=== PATIENT | female | born 1985 | race African-American/Black ===

== ENCOUNTER 2021-10-14 17:12 | Emergency (ER) | payer MEDICAID, SELFPAY ==
[2021-10-14 17:14] VITALS: BP 143/91; PULSE 151; RESP 16; TEMP 36.9; O2SAT 100; BMI 29.0
--- NOTE | 2021-10-14 18:09 | EKG12_ITS ---
Test Reason : SYNCOPE Blood Pressure : / mmHG Vent. Rate : 138 BPM Atrial Rate : 138 BPM P-R Int : 130 ms QRS Dur : 080 ms QT Int : 286 ms P-R-T Axes : 057 023 056 degrees QTc Int : 433 ms Sinus tachycardia Otherwise normal ECG Confirmed by TREY LINDSEY, RAY ([id number]), tape editor YADIRA LUBIN ([id number]) on 10/17/2021 9:23:17 AM Referred By: BB Confirmed By:RAY YANG MD
--- NOTE | 2021-10-14 18:09 | ED.VIS.FEGU ---
HPI HPI - Female History of Present Illness Chief Complaint: Vag Bleeding Informant: patient and EMS Bleeding Issue: Positive for Vaginal bleeding and Passing clots Onset: Today Context: Gradual Onset Timing: Continuous Current Severity: Mild Maximum Severity: Heavy Narrative Narrative: Patient started having spontaneous vaginal bleeding several hours ago, it became extremely heavy, with clots, and her IUD came out which was placed about 2 years ago. This was the second IUD she had after the initial 1 went 5 years and ran out of hormone. She states after the bleeding started today, she had a brief syncopal episode. The significant other witnessed it, states she was out for less than 1 minute. She felt lightheaded and gradually had this occur, no palpitations, chest discomfort, shortness of breath. She did have some pelvic/low back cramping earlier but that is gone and she is feeling better now. No nausea or vomiting. No recent illness. States he has a history of fibroids but they did not want to do a hysterectomy on her at the time they evaluated her for the fibroids. No problems urinating recently and no other illness. [facility] Medical History (Updated 10/14/21 @ 22:[address] Abhi Olivares MD) Fibroids Iron deficiency anemia Migraine headache Home Medications cyclobenzaprine 10 mg PO TID PRN #20 tablet 05/08/17 [Rx Last Taken Unknown] hydrocodone-acetaminophen 1 - 2 tab PO Q4H PRN PRN #20 tablet 05/08/17 [Rx Last Taken Unknown] losartan 25 mg PO DAILY PRN 05/08/17 [History Last Taken Unknown] norethindrone acetate [Aygestin] See Rx Instructions .ROUTE .COMPLEX #39 tab 10/14/21 [Rx Last Taken Unknown] Allergy/AdvReac Type Severity Reaction Status Date / Time No Known Allergies Allergy Verified 10/14/21 17:13 Surgical History (Updated 10/14/21 @ 17:18 by Kiana Bonilla) History of tonsillectomy Social History Smoking Status: Never smoker ROS ROS ED Constitutional Constitutional ED: Denies chills or fever(s) Eyes Eyes: Denies change in vision or diplopia ENT ENT ED: Denies rhinorrhea or sore throat Cardiovascular Cardiovascular: Denies chest pain or palpitations Respiratory/Chest Respiratory/Chest: Denies cough or dyspnea Gastrointestinal Gastrointestinal: Reports as per HPI and abdominal pain; Denies diarrhea, nausea or vomiting Genitourinary Genitourinary ED: Reports as per HPI; Denies dysuria or hematuria Musculoskeletal Musculoskeletal: Reports back pain; Denies neck pain Integumentary Denies abscess or rash Neurologic Neurologic: Denies headache(s), paresthesias or weakness Psychiatric Psychiatric: Denies anxiety or suicidal thoughts EXAM Physical Exam Const Vital Signs: 10/14/21 17:14 10/14/21 18:18 10/14/21 21:06 Temperature 98.4 F Temperature Source Temporal Pulse Rate 151 H 138 H 103 H Pulse Rate [Sitting (for 1 minute prior to obtaining)] Pulse Rate [Standing (for 1 minute prior to obtaining)] Respiratory Rate 16 16 17 Blood Pressure 143/91 H 119/79 119/79 Blood Pressure [Sitting (for 1 minute prior to obtaining)] Blood Pressure [Standing (for 1 minute prior to obtaining)] Blood Pressure Mean 108 92 92 Blood Pressure Mean [Sitting (for 1 minute prior to obtaining)] Blood Pressure Mean [Standing (for 1 minute prior to obtaining)] Pulse Ox 100 99 100 Oxygen Delivery Method Room Air Room Air Room Air 10/14/21 21:42 Temperature Temperature Source Pulse Rate Pulse Rate [Sitting (for 1 minute prior to obtaining)] 117 H Pulse Rate [Standing (for 1 minute prior to obtaining)] 130 H Respiratory Rate Blood Pressure Blood Pressure [Sitting (for 1 minute prior to obtaining)] 122/84 H Blood Pressure [Standing (for 1 minute prior to obtaining)] 130/96 H Blood Pressure Mean Blood Pressure Mean [Sitting (for 1 minute prior to obtaining)] 96 Blood Pressure Mean [Standing (for 1 minute prior to obtaining)] 107 Pulse Ox Oxygen Delivery Method Positive well nourished and well developed General Appearance ED: well developed and NAD HEENT Reports moist mucous membranes normocephalic and atraumatic Eyes PERRL and EOMs intact bilaterally Neck full ROM and supple Resp normal respiratory effort and clear to auscultation bilaterally Cardio regular rate, regular rhythm and no murmurs Rate: tachycardic GI non-tender and non-distended Auscultation: normoactive bowel sounds Palpation: soft Narrative: Speculum exam: Blood and clots within the vaginal canal, after removing this gently with swabs, there was a small clot within the cervical eyes which I also was able to gently remove with a swab, palpating the uterus there is no active vaginal bleeding after this. Back/Spine no CVA tenderness General Back: other FROM Extremity normal to inspection General Extremety ED: Negative for edema, pulses abnormal or tenderness General Extremity: Negative for edema or pulses abnormal Neuro oriented x3, CN's II-XII intact bilaterally and no sensory deficits noted Sensorium / Orientation: awake and alert Motor Exam: strength 5/5 throughout Skin no rashes or lesions noted and no wounds MDM MDM MDM Narrative Medical decision making narrative: Initially patient very orthostatic, she stood up and felt near syncopal. Her hemoglobin is higher than her baseline at 12.5. Given the heavy bleeding, syncopal episode, and orthostasis, I thought it would be better to repeat her hemoglobin and hematocrit after a liter of fluid and time. We did this 3 hours after the initial draw, and it is showing a hemoglobin of 10.8 closer to her baseline. Her tachycardia improved down to around 100-110. We repeated orthostatics and she no longer feels lightheaded and was able to walk to and from the bathroom. She did have some mild vaginal bleeding at this time but no clots nothing severe or as heavy as it was earlier. I discussed all this several times with Dr. Baltazar, she is comfortable with her going home as am I. She recommends Aygestin 5 mg 4 times daily for as many days that she is having bleeding, and then tapering afterwards and following up closely in the office. Patient is comfortable with this overall plan and feels much better. I suspect this is related to her fibroids, and since her bleeding is controlled outpatient follow-up is reasonable. Discussed reasons to return. Lab Data Attestation: I reviewed the patient's lab results. Labs: Laboratory Results - last 24 hr 10/14/21 10/14/21 10/14/21 17:30 17:30 17:30 WBC 8.7 RBC 4.33 Hgb 12.5 Hct 39.5 MCV 91.2 MCH 28.9 MCHC 31.6 L RDW Std Deviation 47.5 H RDW Coeff of Jermaine 14.1 Plt Count 350 MPV 9.8 Immature Gran % (Auto) 0.600 Neut % (Auto) 53.4 Lymph % (Auto) 36.2 [place] % (Auto) 8.3 Eos % (Auto) 0.9 Baso % (Auto) 0.6 Absolute Neuts (auto) 4.6 Absolute Lymphs (auto) 3.14 Nucleated RBC % 0 Sodium 135 L Potassium 3.3 L Chloride 102 Carbon Dioxide 19.0 L Anion Gap 14 BUN 19 H Creatinine 1.87 H Estim Creat Clear Calc 38.56 Est GFR (MDRD) Af Amer 39 L Est GFR (MDRD) Non-Af 32 L BUN/Creatinine Ratio 10.2 Glucose 100 Calcium 9.0 Serum , Qual NEGATIVE 10/14/21 20:20 WBC RBC Hgb 10.8 L Hct 32.7 L MCV MCH MCHC RDW Std Deviation RDW Coeff of Jermaine Plt Count MPV Immature Gran % (Auto) Neut % (Auto) Lymph % (Auto) [place] % (Auto) Eos % (Auto) Baso % (Auto) Absolute Neuts (auto) Absolute Lymphs (auto) Nucleated RBC % Sodium Potassium Chloride Carbon Dioxide Anion Gap BUN Creatinine Estim Creat Clear Calc Est GFR (MDRD) Af Amer Est GFR (MDRD) Non-Af BUN/Creatinine Ratio Glucose Calcium Serum , Qual EKG Initial EKG: Attestation: I personally reviewed and interpreted this EKG as follows: Interpretation: No Acute Injury Pattern and Sinus Tachycardia (otherwise nml EKG) Discharge Plan Triage Chief Complaint: Vag Bleeding ED Provider: Abhi Olivares Dx/Rx/DC Orders Clinical Impression: Abnormal uterine bleeding, Fibroid, uterine, Syncope due to orthostatic hypotension Instructions: ED Dysfunctional Uterine Bleeding, ED Uterine Fibroids Prescriptions: New norethindrone acetate [Aygestin] 5 mg tablet See Rx Instructions .ROUTE .COMPLEX Qty: 39 RF: 0 No Action losartan 25 MG tablet 25 mg PO DAILY PRN (Reason: HTN) RF: 0 cyclobenzaprine 10 MG tablet 10 mg PO TID PRN (Reason: Muscle Spasm) Qty: 20 RF: 0 hydrocodone-acetaminophen 1 TABLET tablet 1 - 2 tab PO Q4H PRN PRN (Reason: Pain) Qty: 20 RF: 0 Primary Care Provider: Erick Olvera Referrals: Erick Olvera MD [Primary Care Provider] - Frida Baltazar DO [STAFF PHYSICIAN] - 3-5 Days (Call for appointment) Disposition Disposition: Home, Self Care
[2021-10-14 18:18] VITALS: BP 119/79; PULSE 138; RESP 16; O2SAT 99
[2021-10-14 18:20] LABS: Absolute Lymphocyte Count 3.14 X10^3/uL (0.83-4.51); Absolute Neutrophil Count 4.6 X10^3/uL (2.0-7.7); Basophil# 0.05 X10^3/uL; Basophil% 0.6 % (0-1); Eosinophil# 0.08 X10^3/uL; Eosinophils% 0.9 % (0-5); Hematocrit 39.5 % (37-47); Hemoglobin 12.5 g/dL (12.0-15.0); Lymphocyte # 3.14 X10^3/ul (0.83-4.51); Lymphocyte % 36.2 % (19-41); Mean Corp Hgb Conc 31.6 g/dL (32-36); Mean Corpuscular Hgb 28.9 pg (27.0-32.0); Mean Corpuscular Volume 91.2 fL (81-99); Mean Platelet Vol. 9.8 fl (6.2-12.0); Monocyte# 0.72 X10^3/uL; Monocyte% 8.3 % (0-10); NRBC Flagged by Analyzer 0 % (0-5); Neutrophil # 4.63 X10^3/uL (2.7-7.7); Neutrophil % 53.4 % (47-70); Platelet Count 350 K/mm3 (150-450); RBC Distribution Width CV 14.1 % (11.6-14.6); RBC Distribution Width SD 47.5 fl (35.1-43.9); Red Blood Count 4.33 M/mm3 (4.2-5.4); White Blood Count 8.7 K/mm3 (4.4-11.0)
[2021-10-14] MEDS: 0.9% Normal Saline 1,000 ML 999 ML IV ×2 (18:33→21:49)
[2021-10-14 18:34] LABS: Anion Gap 14 (5-15); BUN 19 mg/dL (7-18); BUN/Creat Ratio 10.2 RATIO (10-20); Chloride 102 mmol/L (98-107); Creatinine, Serum 1.87 mg/dL (0.55-1.02); EST Glomerular Filtration Rate 32 mL/min (>60); Est Glom Filt Rate - Afr Amer 39 mL/min (>60); Estimated Creatinine Clearance 38.56 ml/min; Glucose 100 mg/dL (74-106); Potassium 3.3 mmol/L (3.5-5.1); Sodium Level 135 mmol/L (136-145)
[2021-10-14 18:36] LABS: Internal QC Validated? YES +Cl - CLEAR BKGD; Pregnancy, Serum, hCG Quali. NEGATIVE Negative
[2021-10-14 20:37] LABS: Hematocrit 32.7 % (37-47); Hemoglobin 10.8 g/dL (12.0-15.0)
[2021-10-14 21:06] VITALS: BP 119/79; PULSE 103; RESP 17; O2SAT 100
[2021-10-14 21:42] VITALS: BP 122/84; BP 130/96; PULSE 117; PULSE 130
== END 2021-10-14 22:50 | disposition home or self-care (01) ==
PROVIDERS: Emergency Provider Emergency Medicine; PCP Family Medicine; Visit Provider Emergency Medicine
DX: N93.9 Abnormal uterine and vaginal bleeding, unspecified (principal); D25.9 Leiomyoma of uterus, unspecified; I95.1 Orthostatic hypotension
CPT/HCPCS: 80048; 84703; 85014; 85018; 85025; 93005; 99285; J7030; A4216

== ENCOUNTER 2022-05-06 11:59 | Emergency (ER) | payer MEDICAID, SELFPAY ==
[2022-05-06 12:01] VITALS: BP 183/122; PULSE 124; RESP 18; TEMP 36.5; O2SAT 100; BMI 29.0
--- NOTE | 2022-05-06 12:12 | EKG12_ITS ---
Test Reason : PALP Blood Pressure : / mmHG Vent. Rate : 121 BPM Atrial Rate : 121 BPM P-R Int : 154 ms QRS Dur : 084 ms QT Int : 324 ms P-R-T Axes : 062 016 036 degrees QTc Int : 460 ms Sinus tachycardia Possible Left atrial enlargement Nonspecific T wave abnormality Abnormal ECG Confirmed by SAILAJA LINDSEY, YG ([id number]), editor in chief newspaper YADIRA LUBIN ([id number]) on 05/08/2022 11:17:49 AM Referred By: LALY Confirmed By:YG MENARD MD
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
[2022-05-06] MEDS: LORazepam 2 MG/ML Syringe 1 MG IM (12:28)
== END 2022-05-06 13:21 | disposition home or self-care (01) ==
PROVIDERS: Emergency Provider Emergency Medicine; PCP Family Medicine; Visit Provider Emergency Medicine
DX: F41.1 Generalized anxiety disorder (principal)
CPT/HCPCS: 93005; 96372; 99283

== ENCOUNTER 2023-07-29 17:21 | Emergency (ER) | payer OTHER, SELFPAY ==
[2023-07-29 17:23] VITALS: BP 158/106; PULSE 96; RESP 18; TEMP 36; O2SAT 100; BMI 34.4
--- OUTSIDE RECORDS SUMMARY | 2023-07-29 19:41 | XMS RPT_ITS | CCD ---
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 Name Role Phone May LINDSEY, Smith Mei Primary Care Provider SMITH OLVERA Primary Care Unavailab SMITH Mcdaniel Primary Care Unavailab le SMITH OLVERA Primary Care Unavailab le Allergies Allergy Classification Reported Allergen(s) Allergy Type Date of Onset Reaction(s) Facility (13 sources) Lisinopril; Translations: [LISINOPRIL] Drug Allergy 10-10-2017 Cough [facility] Work Phone: (13 sources) Losartan; Translations: [LOSARTAN] Drug Allergy 01-12-2019 Other: See Comments [facility] Work Phone: Medications Current Medications Medication Drug Class(es) Dates Sig (Normalized) Sig (Original) acetaminophen 500 mg oral tablet (2 sources) Start: 09-06-2022 End: 09-09-2022 take 500-1000 mg by mouth every six hours as needed acetaminophen (TYLENOL EXTRA STRENGTH) 500 mg tablet Take 1-2 tablets by mouth every 6 hours as needed for pain or fever (specify) for up to 3 days. 24 tablet 0 09/06/2022 09/09/2022 Active Completed/Discontinued Medications Medication Drug Class(es) Dates Sig (Normalized) Sig (Original) busPIRone hydrochloride 5 mg oral tablet (5 sources) Start: 05-09-2022 take 1 tablet by mouth three times daily busPIRone (BUSPAR) 5 mg tablet Indications: Panic attacks Take 1 tablet by mouth three times daily. 90 tablet 0 05/09/2022 Active Problems Active Problems Problem Classification Problem Date Documented Date Episodic/Chronic Anxiety disorders (1 source) Panic attack; Translations: [Panic disorder [episodic paroxysmal anxiety]] Chronic Bacterial infection; unspecified site (2 sources) Mycoplasma infection; Translations: [Mycoplasma infection, unspecified site] Episodic Deficiency and other anemia (15 sources) Iron deficiency anemia; Translations: [Iron deficiency anemia, unspecified] Onset: 11-19-2018 11-19-2018 Episodic Deficiency and other anemia (2 sources) Anemia; Translations: [Anemia, unspecified] Episodic Essential hypertension (13 sources) Essential hypertension; Translations: [Essential (primary) hypertension] Onset: 10-10-2017 10-10-2017 Chronic Immunizations and screening for infectious disease (2 sources) Patient encounter status; Translations: [Encounter for screening for human papillomavirus (HPV)] Episodic Inflammatory diseases of female pelvic organs (1 source) Acute vaginitis; Translations: [Acute vaginitis] Episodic Other female genital disorders (5 sources) Abnormal uterine bleeding; Translations: [Abnormal uterine and vaginal bleeding, unspecified] Chronic Other nutritional; endocrine; and metabolic disorders (10 sources) Obesity; Translations: [Other obesity due to excess calories] Onset: 11-19-2018 11-19-2018 Chronic Other nutritional; endocrine; and metabolic disorders (2 sources) Obesity caused by energy imbalance; Translations: [Other obesity due to excess calories] Onset: 11-19-2018 11-19-2018 Chronic Other upper respiratory infections (2 sources) Viral upper respiratory tract infection; Translations: [Acute upper respiratory infection, unspecified] Episodic Otitis media and related conditions (1 source) Acute right otitis media; Translations: [Otitis media, unspecified, right ear] 05-07-2023 Episodic Viral infection (1 source) Viral disease; Translations: [Viral infection, unspecified] 07-28-2023 Episodic Past or Other Problems Problem Classification Problem Date Documented Date Episodic/Chronic Anal and rectal conditions (12 sources) Anal intraepithelial neoplasia grade II; Translations: [Dysplasia of anus] Onset: 11-19-2018 11-19-2018 Episodic Benign neoplasm of uterus (9 sources) Intramural leiomyoma of uterus; Translations: [Intramural leiomyoma of uterus] Onset: 10-27-2021 10-27-2021 Episodic Cancer; other and unspecified primary (3 sources) History of gynecological disorder; Translations: [Personal history of other benign neoplasm] Onset: 10-09-2011 06-19-2021 Episodic Hemorrhoids (3 sources) Hemorrhoids; Translations: [Unspecified hemorrhoids] Onset: 10-09-2011 06-19-2021 Episodic Residual codes; unclassified (12 sources) Family history of genetic disorder carrier; Translations: [Family history of carrier of genetic disease] Onset: 10-09-2011 06-19-2021 Episodic Screening and history of mental health and substance abuse codes (12 sources) Ex-smoker; Translations: [Personal history of nicotine dependence] Onset: 11-19-2018 11-19-2018 Episodic Results Test Name Value Interpretation Reference Range Facil ity Vital Signs Date Time Vital Sign Value Performing Clinician Faci lity 07-28-2023 08:33-0500 Body temperature 98.71 [degF] Vernon Mcdonald AIRPLANE MECHANIC.MINE SAFETY DIRECTOR Work Phone: [facility] 07-28-2023 08:33-0500 Body weight 96.16 kg Vernon Mcdonald AIRPLANE MECHANIC.MINE SAFETY DIRECTOR Work Phone: [facility] 07-28-2023 08:33-0500 Diastolic blood pressure 74 mm[Hg] Vernon Mcdonald AIRPLANE MECHANIC.MINE SAFETY DIRECTOR Work Phone: [facility] 07-28-2023 08:33-0500 Heart rate 106 /min Vernon Mcdonald AIRPLANE MECHANIC.MINE SAFETY DIRECTOR Work Phone: [facility] 07-28-2023 08:33-0500 Respiratory rate 16 /min Vernon Mcdonald AIRPLANE MECHANIC.MINE SAFETY DIRECTOR Work Phone: [facility] 07-28-2023 08:33-0500 SaO2% (BldA) [Mass fraction] 97 % Vernon Mcdonald AIRPLANE MECHANIC.MINE SAFETY DIRECTOR Work Phone: [facility] 07-28-2023 08:33-0500 Systolic blood pressure 122 mm[Hg] Vernon Mcdonald AIRPLANE MECHANIC.MINE SAFETY DIRECTOR Work Phone: [facility] 05-07-2023 13:21-0500 Body temperature 98.29 [degF] Rebecca Escoto AIRPLANE MECHANIC.MINE SAFETY DIRECTOR Work Phone: [facility] 05-07-2023 13:21-0500 Body weight 92.53 kg Rebecca Escoto AIRPLANE MECHANIC.MINE SAFETY DIRECTOR Work Phone: [facility] 05-07-2023 13:21-0500 Diastolic blood pressure 90 mm[Hg] Rebecca Escoto AIRPLANE MECHANIC.MINE SAFETY DIRECTOR Work Phone: [facility] 05-07-2023 13:21-0500 Heart rate 116 /min Rebecca Escoto AIRPLANE MECHANIC.MINE SAFETY DIRECTOR Work Phone: [facility] 05-07-2023 13:21-0500 Respiratory rate 16 /min Rebecca Escoto AIRPLANE MECHANIC.MINE SAFETY DIRECTOR Work Phone: [facility] 05-07-2023 13:21-0500 SaO2% (BldA) [Mass fraction] 97 % Rebecca Escoto AIRPLANE MECHANIC.MINE SAFETY DIRECTOR Work Phone: [facility] 05-07-2023 13:21-0500 Systolic blood pressure 140 mm[Hg] Rebecca Escoto AIRPLANE MECHANIC.MINE SAFETY DIRECTOR Work Phone: [facility] 09-06-2022 09:39-0400 Body temperature 97.7 [degF] Alicia Athy PA-C Work Phone: [facility] 09-06-2022 09:39-0400 Body weight 85 kg Alicia Athy PA-C Work Phone: [facility] 09-06-2022 09:39-0400 Diastolic blood pressure 82 mm[Hg] Alicia Athy PA-C Work Phone: [facility] 09-06-2022 09:39-0400 Heart rate 80 /min Alicia Athy PA-C Work Phone: [facility] 09-06-2022 09:39-0400 Respiratory rate 18 /min Alicia Athy PA-C Work Phone: [facility] 09-06-2022 09:39-0400 SaO2% (BldA) [Mass fraction] 100 % Alicia Athy PA-C Work Phone: [facility] 09-06-2022 09:39-0400 Systolic blood pressure 128 mm[Hg] Alicia Quiroz PA-C Work Phone: [facility] 05-09-2022 18:26-0500 Diastolic blood pressure 99 mm[Hg] Stacey Podlogar AIRPLANE MECHANIC.MINE SAFETY DIRECTOR Work Phone: [facility] 05-09-2022 18:26-0500 Heart rate 77 /min Stacey Podlogar AIRPLANE MECHANIC.MINE SAFETY DIRECTOR Work Phone: [facility] 05-09-2022 18:26-0500 Systolic blood pressure 150 mm[Hg] Stacey Podlogar AIRPLANE MECHANIC.MINE SAFETY DIRECTOR Work Phone: [facility] 05-09-2022 17:38-0500 Body weight 83.78 kg Stacey Podlogar AIRPLANE MECHANIC.MINE SAFETY DIRECTOR Work Phone: [facility] 05-09-2022 17:38-0500 Respiratory rate 16 /min Stacey Podlogar AIRPLANE MECHANIC.MINE SAFETY DIRECTOR Work Phone: [facility] 05-09-2022 17:38-0500 SaO2% (BldA) [Mass fraction] 99 % Stacey Podlogar AIRPLANE MECHANIC.MINE SAFETY DIRECTOR Work Phone: [facility] 10-27-2021 08:34-0400 Body weight 79.83 kg Machelle Gomez MD Work Phone: [facility] 10-27-2021 08:34-0400 Diastolic blood pressure 86 mm[Hg] Machelle Gomez MD Work Phone: [facility] 10-27-2021 08:34-0400 Systolic blood pressure 130 mm[Hg] Machelle Gomez MD Work Phone: [facility] 10-24-2021 09:48-0400 Body weight 79.83 kg Machelle Gomez MD Work Phone: [facility] 10-24-2021 09:48-0400 Diastolic blood pressure 68 mm[Hg] Machelle Gomez MD Work Phone: [facility] 10-24-2021 09:48-0400 Systolic blood pressure 110 mm[Hg] Machelle Gomez MD Work Phone: [facility] 09-12-2021 11:31-0400 Body temperature 98.01 [degF] Neisha Dumas APRN.MINE SAFETY DIRECTOR Work Phone: [facility] 09-12-2021 11:31-0400 Body weight 82.37 kg Neisha Dumas APRN.MINE SAFETY DIRECTOR Work Phone: [facility] 09-12-2021 11:31-0400 Diastolic blood pressure 82 mm[Hg] Neisha Dumas APRN.MINE SAFETY DIRECTOR Work Phone: [facility] 09-12-2021 11:31-0400 Heart rate 88 /min Neisha Dumas APRN.MINE SAFETY DIRECTOR Work Phone: [facility] 09-12-2021 11:31-0400 Respiratory rate 18 /min Neisha Dumas APRN.MINE SAFETY DIRECTOR Work Phone: [facility] 09-12-2021 11:31-0400 SaO2% (BldA) [Mass fraction] 99 % Neisha Dumas APRN.MINE SAFETY DIRECTOR Work Phone: [facility] 09-12-2021 11:31-0400 Systolic blood pressure 118 mm[Hg] Neisha Dumas APRN.MINE SAFETY DIRECTOR Work Phone: [facility] Encounters Encounter Date Encounter Type Care Provider Facility Start: 07-28-2023 End: 07-28-2023 [facility] Start: 07-28-2023 End: 07-28-2023 Office outpatient visit 15 minutes Vernon Mcdonald AIRPLANE MECHANIC.MINE SAFETY DIRECTOR Work Phone: [facility] Procedures Date Procedure Procedure Detail Performing Clinician Start: 05-07-2023 STREP A MOLECULAR (POC) Rebecca Escoto APRN.MINE SAFETY DIRECTOR Work Phone: Start: 10-27-2021 Urine test visual color cmprsn meths Machelle Gomez MD Work Phone: Start: 01-12-2019 Adult depression screening assessment Neisha Dumas APRN.MINE SAFETY DIRECTOR Work Phone: Plan of Treatment Date Care Activity Detail Author Start: 07-09-2031 Urine microalbumin profile [facility] Start: 10-24-2026 HPV TESTING HPV TESTING [facility] Start: 10-24-2026 PAP TESTING PAP TESTING [facility] Start: 10-24-2026 Screening for malignant neoplasm of cervix [facility] Start: 07-28-2024 BP Controlled (<130/80) BP Controlled (<130/80) [facility] Start: 07-30-2023 HPV TESTING HPV TESTING [facility] Start: 07-30-2023 PAP TESTING PAP TESTING [facility] Start: 07-28-2023 End: 08-11-2023 COVID & INFLUENZA A/B & RSV NAAT, ROUTINE COVID & INFLUENZA A/B & RSV NAAT, ROUTINE Microbiology Routine Viral illness Expected: 07/28/2023, Expires: 08/11/2023 [facility] Work Phone: Immunizations Immunization Date Immunization Notes Care Provider Fa cili 07-25-2021 hepatitis B vaccine, adult dosage Machelle Gomez MD Work Phone: [facility] Work Phone: 07-25-2021 influenza, seasonal, injectable, preservative free Machelle Gomez MD Work Phone: [facility] Work Phone: 07-25-2021 hepatitis B vaccine, unspecified formulation Machelle Gomez MD Work Phone: [facility] 07-25-2021 influenza virus vaccine, unspecified formulation Rebecca Escoto AIRPLANE MECHANIC.MINE SAFETY DIRECTOR Work Phone: [facility] 07-09-2021 tetanus toxoid, redu jessi diphtheria toxoid, and acellular pertussis vaccine, adsorbed Neisha Piter AIRPLANE MECHANIC.MINE SAFETY DIRECTOR Work Phone: [facility] Work Phone: 04-17-2018 influenza, injectabl e, quadrivalent, contains preservative Neisha Piter AIRPLANE MECHANIC.MINE SAFETY DIRECTOR Work Phone: [facility] 04-17-2018 tetanus and diphther ia toxoids, adsorbed, preservative free, for adult use (5 Lf of tetanus toxoid and 2 Lf of diphtheria toxoid) Neisha Piter AIRPLANE MECHANIC.MINE SAFETY DIRECTOR Work Phone: [facility] 01-07-2016 tetanus toxoid, redu jessi diphtheria toxoid, and acellular pertussis vaccine, adsorbed Neisha Piter AIRPLANE MECHANIC.MINE SAFETY DIRECTOR Work Phone: [facility] Work Phone: 04-22-2012 influenza virus vaccine, unspecified formulation Neisha Piter AIRPLANE MECHANIC.MINE SAFETY DIRECTOR Work Phone: [facility] Work Phone: 05-23-2006 influenza virus vaccine, unspecified formulation Neisha Piter AIRPLANE MECHANIC.MINE SAFETY DIRECTOR Work Phone: [facility] Work Phone: 06-24-2005 diphtheria and tetan us toxoids, adsorbed for pediatric use Neisha Piter AIRPLANE MECHANIC.MINE SAFETY DIRECTOR Work Phone: [facility] Work Phone: Payers Date Payer Category Payer Unknown [employer] [id number] 2023-Present [address] [place] [address] Other [id number] 2023 Unknown [id number] 2022 Medicaid [id number] 2019 Medicaid [employer] [id number] 2019-Present [phone] [address] [place] [address] Medicaid [id number] 2019 Medicaid [id number] Social History Date Type Detail Facility Tobacco smoking stat [facility] Ex-smoker [facility] Work Phone: End: 07-25-2008 History of tobacco use Current smoker [facility] End: 07-25-2008 History of tobacco use Cigarette Smoker [facility] Work Phone: Start: 09-12-2021 End: 07-28-2023 Alcohol intake Current drinker of alcohol (finding) [facility] Start: 2020 End: 09-12-2021 Alcohol intake [facility] Work Phone: Start: 04-24-2018 History SDOH Alcohol Comment occassionaly [facility] Start: 07-15-2018 End: 05-09-2022 Tobacco Comment 1-2 cigarettes per week before she quit [facility] Start: 1985 Sex Assigned At Not on file C [facility] Start: 09-02-2021 End: 10-27-2021 Exposure to SARS-CoV-2 (event) Not sure [facility] Work Phone: Start: 10-24-2021 End: 05-09-2022 Tobacco smoking status NHIS Occasional tobacco smoker [facility] Work Phone: Start: 10-24-2021 End: 05-09-2022 Tobacco use and exposure Smokeless tobacco non-user [facility] Work Phone: Start: 2020 End: 05-07-2023 Tobacco use panel [facility] Work Phone: Adult Depression Screening Assessment 0 [facility] Work Phone: Clinical Notes 04-02-2012 to 07-28-2023 Patient InstructionsVernon Mcdonald APRN.MINE SAFETY DIRECTOR - 07/28/2023 8:35 AM Rebecca Barton APRN.CNP - 05/07/2023 1:49 PM ESTTelephone Encounter - Vianney Barillas STUDENT ASSISTANT - 09/06/2022 7:39 PM EDT Note Date & Type Note Facility 07-28-2023 Note HNO ID: [id number] Author: VERNON MCDONALD APRN.CNP Service: ? Author Type: Nurse Practitioner Type: Progress Notes Filed: 07/28/2023 09:08 Note Text: Subjective HPI Nontoxic-appearing female presents urgent care chief complaint flulike symptoms. Duration of symptoms 3 days. Associated symptoms body aches chills fatigue cough sore throat fever. Patient states does have some drainage from her left eye. Has not use any OTC medications recently. Sick contacts works in long-term. Denies any productive cough chest pain shortness of breath pleuritic pain hemoptysis vomiting abdominal pain change in bowel or bladder habits. Past medical history prescription medication use allergies reviewed. .Patient presents with: Nasal Congestion: headache, bodyaches, eye pressure left eye film, scratchy throat x 3 days PAST MEDICAL HISTORY Diagnosis Date Abnormal glandular Papanicolaou smear of cervix Abn. Pap smear (cervix) AIN grade II anoscopy negative Anemia history of anemia in Chlamydia 2001 Hemorrhoids Hypertension Iron deficiency anemia Obesity (BMI 30.0-34.9) Uterine fibroid PAST SURGICAL HISTORY Procedure Laterality Date COLPOSCOPY CERVIX UPPER/ADJACENT VAGINA Colposcopy HEMORRHOIDECTOMY INTERNAL RUBBER BAND LIGATIONS 08/11/2018 OPHTH XMANDEVAL ANES W/WO MANJ GLOBE COMPL 11/24/2018 rectal PAST SURGICAL HISTORY OF STITCHES IN RIGHT HAND AND LEFT FOOT PAST SURGICAL HISTORY OF 11/2018 anoscopy with acetic acid staining and biopsies TONSILLECTOMY PRIMARY/SECONDARY Tonsillectomy ALLERGIES Lisinopril and Losartan MEDICATIONS LORazepam (ATIVAN) 1 mg tablet Take 1 mg by mouth three times daily as needed. busPIRone (BUSPAR) 5 mg tablet Take 1 tablet by mouth three times daily. hydrOXYzine pamoate (VISTARIL) 25 mg capsule Take 1 capsule by mouth three times daily as needed for anxiety. hydroCHLOROthiazide (HYDRODIURIL, ESIDRIX) 25 mg tablet Take 1 tablet by mouth once daily. tranexamic acid (LYSTEDA) 650 mg tablet Take 2 tablets by mouth three times daily as needed (heavy menstrual bleeding) for up to 5 days. naproxen (NAPROSYN) 375 mg tablet Take 1 tablet by mouth three times daily as needed (pain). ferrous sulfate 325 mg (65 mg iron) tablet Take 1 tablet by mouth daily with breakfast. PNV no.170-iron fum-folic acid (DERMACINRX PRENATRYL) 27 mg iron- 1 mg tab Take 1 tablet by mouth once daily. cyclobenzaprine (FLEXERIL) 10 mg tablet Take 1 tablet by mouth twice daily as needed for muscle spasm or pain. (Patient not taking: Reported on 07/28/2023) FAMILY HISTORY Problem Relation Age of Onset Hypertension Mother Asthma Mother Hypertension Father No Known Problems Sister No Known Problems Sister No Known Problems Brother Cancer Maternal Grandmother intestinal Alzheimer's Disease Maternal Grandmother Coronary Artery Disease Maternal Grandfather of this Heart Maternal Grandfather No Known Problems Paternal Grandmother No Known Problems Son No Known Problems Daughter No Known Problems Daughter Stroke Maternal Uncle Breast Cancer Maternal Aunt No Known Problems Son No Known Problems Paternal Grandfather Social History Tobacco Use Smoking status: Some Days Years: 5 Types: Cigarettes Last attempt to quit: 07/25/2008 Years since quittin.0 Smokeless tobacco: Never Tobacco comments: 1-2 cigarettes per week before she quit Vaping Use Vaping Use: Never used Substance Use Topics Alcohol use: Yes Alcohol/week: 4.0 standard drinks of alcohol Types: 4 Cans of Beer (12oz) per week Comment: occassionaly Drug use: No BP 122/74 Pulse 106 Temp 37.1 ?C (98.7 ?F) Resp 16 Wt 96.2 kg (212 lb) LMP 02/04/2022 (Within Days) SpO2 97% BMI 33.95 kg/m? Hr 93 Review of Systems Constitutional: Positive for chills, fever and malaise/fatigue. HENT: Positive for congestion and sore throat. Negative for ear discharge, ear pain and sinus pain. Eyes: Positive for discharge. Negative for blurred vision, double vision, photophobia, pain and redness. Respiratory: Positive for cough. Negative for hemoptysis, sputum production, shortness of breath, wheezing and stridor. Cardiovascular: Negative for chest pain. Gastrointestinal: Positive for nausea. Negative for abdominal pain, diarrhea and vomiting. Musculoskeletal: Positive for myalgias. Skin: Negative for itching and rash. Neurological: Positive for headaches. Negative for dizziness. Objective Physical Exam Constitutional: General: She is not in acute distress. Appearance: She is not diaphoretic. HENT: Head: Normocephalic. Jaw: No trismus, tenderness, swelling or pain on movement. Nose: Congestion present. Mouth/Throat: Mouth: Mucous membranes are moist. Pharynx: Oropharynx is clear. Uvula midline. No pharyngeal swelling, oropharyngeal exudate, posterior oropharyngeal erythema or uvula swelling. Eyes: General: Right (more content not included)... [facility] 07-28-2023 Instructions Vernon Mcdonald APRN.MINE SAFETY DIRECTOR - 07/28/2023 8:43 AM EST How to Manage Common Symptoms Associated with COVID for Adults Fever- Fever is a temperature over 100.4 F and can occur when the body is fighting an infection. To help treat a fever: Drink plenty of fluids and stay well hydrated. Eat small amounts of easy to digest food. Rest. Your body needs rest to recover, but getting up and moving around the house frequently is a good idea. You should try to continue doing your normal daily activities (bathing, toileting, grooming, cooking), though you will probably feel tired, and need to rest often. Avoid any heavy activity or exercise, as this will increase your body temperature. Dress in light clothing and stay covered in a light sheet. Keep the room temperature cool. Take a slightly warm (not cold or cool) bath, or apply damp washcloths to the forehead and wrists. Cough- Cough is a common symptom associated with COVID and can be bothersome. To help treat a cough: Stay well hydrated. Try warm water or tea with lemon and/or honey to help soothe the cough. Use a humidifier to add moisture to the air. Try a product with menthol, like a cough drop or a rub for your chest such as Vicks, which can help reduce cough. Try cough drops. Avoid smoking and other strong odors or perfumes. Try breathing exercises to keep your lungs open and clear. Take a big deep breath through your nose and hold for 5 seconds before slowly releasing. Repeat frequently, while you are awake. Congestion- Runny nose or nasal congestion can occur with COVID. Treatment can help relieve symptoms: Try OTC nasal saline spray, or nasal saline rinse to relieve mucus congestion. Nasal strips can help keep nasal passages open, to increase airflow. Elevating your head with an extra pillow in bed can help reduce congestion. Using a humidifier can increase moisture in the air, and make breathing easier. Sore Throat- Another common symptom with COVID, can be managed at home by: Stay well hydrated. Gargle with salt water - mix teaspoon salt with 1 cup of warm water and gargle. This helps to loosen mucus in the back of the throat and may reduce discomfort. Try ice chips, popsicles or lozenges to soothe the throat. Nausea/Vomiting/Diarrhea- These are common symptoms, and staying hydrated is most important. If you are nauseous or vomiting, start with small sips of water every 10-15 minutes and increase as tolerated. You can try sucking an ice cube too. If tolerating, you can try pedialyte or Gatorade, or flat sprite or laina-bigg. Start slowly and increase as you are able to. Instead of meals, try smaller, more frequent snacks. Try eating bland foods like crackers, toast, rice, and applesauce. Avoid spicy, greasy or fried foods and dairy containing foods. Even if you aren't feeling hungry due to lack of smell or taste, it is important to try to take in some food when you are able. After drinking and eating, rest in an upright position for up to two hours as needed to help decrease nauseous feelings. Try closing your eyes, avoid moving and watching TV. Avoid strong odors that can make you feel more nauseated. When to seek emergency medical attention Look for emergency warning signs for COVID-19. If having any of these symptoms, seek emergency medical care immediately: Trouble breathing Persistent pain or pressure in the chest New confusion Inability to wake or stay awake Bluish lips or face *This list is not all possible symptoms. Please call your medical provider for any other symptoms that are severe or concerning to you. documented in this encounter [facility] 07-28-2023 History of Present illness Narrative Subjective HPI Nontoxic-appearing female presents urgent care chief complaint flulike symptoms. Duration of symptoms 3 days. Associated symptoms body aches chills fatigue cough sore throat fever. Patient states does have some drainage from her left eye. Has not use any OTC medications recently. Sick contacts works in long-term. Denies any productive cough chest pain shortness of breath pleuritic pain hemoptysis vomiting abdominal pain change in bowel or bladder habits. Past medical history prescription medication use allergies reviewed. .Patient presents with: Nasal Congestion: headache, bodyaches, eye pressure left eye film, scratchy throat x 3 days PAST MEDICAL HISTORY Diagnosis Date Abnormal glandular Papanicolaou smear of cervix Abn. Pap smear (cervix) AIN grade II anoscopy negative Anemia history of anemia in Chlamydia 2002 Hemorrhoids Hypertension Iron deficiency anemia Obesity (BMI 30.0-34.9) Uterine fibroid PAST SURGICAL HISTORY Procedure Laterality Date COLPOSCOPY CERVIX UPPER/ADJACENT VAGINA Colposcopy HEMORRHOIDECTOMY INTERNAL RUBBER BAND LIGATIONS 08/11/2018 OPHTH XM&EVAL ANES W/WO MANJ GLOBE COMPL 11/24/2018 rectal PAST SURGICAL HISTORY OF STITCHES IN RIGHT HAND AND LEFT FOOT PAST SURGICAL HISTORY OF 11/2018 anoscopy with acetic acid staining and biopsies TONSILLECTOMY PRIMARY/SECONDARY <AGE 11 Tonsillectomy ALLERGIES Lisinopril and Losartan MEDICATIONS LORazepam (ATIVAN) 1 mg tablet Take 1 mg by mouth three times daily as needed. busPIRone (BUSPAR) 5 mg tablet Take 1 tablet by mouth three times daily. hydrOXYzine pamoate (VISTARIL) 25 mg capsule Take 1 capsule by mouth three times daily as needed for anxiety. hydroCHLOROthiazide (HYDRODIURIL, ESIDRIX) 25 mg tablet Take 1 tablet by mouth once daily. tranexamic acid (LYSTEDA) 650 mg tablet Take 2 tablets by mouth three times daily as needed (heavy menstrual bleeding) for up to 5 days. naproxen (NAPROSYN) 375 mg tablet Take 1 tablet by mouth three times daily as needed (pain). ferrous sulfate 325 mg (65 mg iron) tablet Take 1 tablet by mouth daily with breakfast. PNV no.170-iron fum-folic acid (DERMACINRX PRENATRYL) 27 mg iron- 1 mg tab Take 1 tablet by mouth once daily. cyclobenzaprine (FLEXERIL) 10 mg tablet Take 1 tablet by mouth twice daily as needed for muscle spasm or pain. (Patient not taking: Reported on 07/28/2023) FAMILY HISTORY Problem Relation Age of Onset Hypertension Mother Asthma Mother Hypertension Father No Known Problems Sister No Known Problems Sister No Known Problems Brother Cancer Maternal Grandmother intestinal Alzheimer's Disease Maternal Grandmother Coronary Artery Disease Maternal Grandfather of this Heart Maternal Grandfather No Known Problems Paternal Grandmother No Known Problems Son No Known Problems Daughter No Known Problems Daughter Stroke Maternal Uncle Breast Cancer Maternal Aunt No Known Problems Son No Known Problems Paternal Grandfather Social History Tobacco Use Smoking status: Some Days Years: 5 Types: Cigarettes Last attempt to quit: 07/25/2008 Years since quittin.0 Smokeless tobacco: Never Tobacco comments: 1-2 cigarettes per week before she quit Vaping Use Vaping Use: Never used Substance Use Topics Alcohol use: Yes Alcohol/week: 4.0 standard drinks of alcohol Types: 4 Cans of Beer (12oz) per week Comment: occassionaly Drug use: No BP 122/74 Pulse 106 Temp 37.1 C (98.7 F) Resp 16 Wt 96.2 kg (212 lb) LMP 02/04/2022 (Within Days) SpO2 97% BMI 33.95 kg/m Hr 93 Review of Systems Constitutional: Positive for chills, fever and malaise/fatigue. HENT: Positive for congestion and sore throat. Negative for ear discharge, ear pain and sinus pain. Eyes: Positive for discharge. Negative for blurred vision, double vision, photophobia, pain and redness. Respiratory: Positive for cough. Negative for hemoptysis, sputum production, shortness of breath, wheezing and stridor. Cardiovascular: Negative for chest pain. Gastrointestinal: Positive for nausea. Negative for abdominal pain, diarrhea and vomiting. Musculoskeletal: Positive for myalgias. Skin: Negative for itching and rash. Neurological: Positive for headaches. Negative for dizziness. Objective Physical Exam Constitutional: General: She is not in acute distress. Appearance: She is not diaphoretic. HENT: Head: Normocephalic. Jaw: No trismus, tenderness, swelling or pain on movement. Nose: Congestion present. Mouth/Throat: Mouth: Mucous membranes are moist. Pharynx: Oropharynx is clear. Uvula midline. No pharyngeal swelling, oropharyngeal exudate, posterior oropharyngeal erythema or uvula swelling. Eyes: General: Right eye: No discharge. Left eye: No discharge. Extraocular Movements: Extraocular movements intact. Conjunctiva/sclera: Conjunctivae normal. Pupils: Pupils are equal, round, and reactive to light. Cardiovascular: Rate and Rhythm: Normal rate and regular rhythm. Heart sounds: Normal heart sounds. Pulmonary: Effort: Pulmonary effort is normal. No tachypnea, accessory muscle usage or respiratory distress. Breath sounds: Normal breath sounds. No stridor. No wheezing, rhonchi or rales. Abdominal: General: There is no distension. Palpations: Abdomen is soft. Tenderness: There is no abdominal tenderness. There is no guarding or rebound. Musculoskeletal: Cervical back: Normal range of motion and neck supple. No edema, erythema, rigidity or tenderness. No pain with movement. Normal range of motion. Lymphadenopathy: Cervical: No cervical adenopathy. Skin: General: Skin is warm and dry. Neurological: Mental Status: She is alert and oriented to person, place, and time. ASSESSMENT/PLAN: 1. Viral illness - ICD9: 079.99, ICD10: B34.9 - COVID & INFLUENZA A/B & RSV NAAT, ROUTINE Diagnosed with viral illnesses. No evidence of bacterial infection noted. Suspicious of influenza like illness. Treat conservatively at this point. Red flags for prompt reevaluation discussed. Be seen by ophthalmology or ER if any visual changes or eye pain develop. Patient was educated on supportive therapies. Patient will follow up with primary care provider as needed. Patient was instructed to immediately proceed to emergency room for any new, worsening, or symptoms lasting longer than anticipated. The patient's clinical presentation is otherwise unremarkable at this time. Based on exam and clinical finding, the patient is stable for discharge. Plan of care was discussed with patient. Patient verbalizes understanding and agrees to plan of care. This note was generated using [employer] software. It may contain errors in wording, punctuation, or spelling. Vernon Mcdonald APRN.ANITA documented in this encounter [facility] 05-07-2023 Note HNO ID: [id number] Author: Rebecca Escoto APRN.ANITA Service: ? Author Type: Nurse Practitioner Type: Progress Notes Filed: 05/07/2023 1:58 PM Note Text: This note was created using Gander Mountain[employer]. Subjective Felicity Sosa is a 37 year old female. 37 year old female with PMH HTN, smoker and anemia presents for complaints of illness. Acute onset this morning upon awakening. +sore throat +ear pain, right +lymph node pain Denies cough Denies fever or chills Denies abdominal pain Denies N/V/D Denies skin rash or lesions. +ill contacts, citing she works at a long-term. The history is provided by the patient. No supervisor modern languages was used. Sore Throat This is a new problem. The current episode started today. The problem has been unchanged. Neither side of throat is experiencing more pain than the other. There has been no fever. The pain is at a severity of 6/10. The pain is moderate. Associated symptoms include ear pain and swollen glands. Pertinent negatives include no abdominal pain, congestion, coughing, diarrhea, drooling, ear discharge, headaches, hoarse voice, plugged ear sensation, neck pain, shortness of breath, stridor, trouble swallowing or vomiting. She has had no exposure to strep or mono. She has tried nothing for the symptoms. The treatment provided no relief. PAST MEDICAL HISTORY Diagnosis Date Abnormal glandular Papanicolaou smear of cervix Abn. Pap smear (cervix) AIN grade II anoscopy negative Anemia history of anemia in Chlamydia 2001 Hemorrhoids Hypertension Iron deficiency anemia Obesity (BMI 30.0-34.9) Uterine fibroid PAST SURGICAL HISTORY Procedure Laterality Date COLPOSCOPY CERVIX UPPER/ADJACENT VAGINA Colposcopy HEMORRHOIDECTOMY INTERNAL RUBBER BAND LIGATIONS 08/11/2018 OPHTH XMANDEVAL ANES W/WO MANJ GLOBE COMPL 11/24/2018 rectal PAST SURGICAL HISTORY OF STITCHES IN RIGHT HAND AND LEFT FOOT PAST SURGICAL HISTORY OF 11/2018 anoscopy with acetic acid staining and biopsies TONSILLECTOMY PRIMARY/SECONDARY Tonsillectomy ALLERGIES Lisinopril and Losartan MEDICATIONS LORazepam (ATIVAN) 1 mg tablet Take 1 mg by mouth three times daily as needed. busPIRone (BUSPAR) 5 mg tablet Take 1 tablet by mouth three times daily. hydrOXYzine pamoate (VISTARIL) 25 mg capsule Take 1 capsule by mouth three times daily as needed for anxiety. hydroCHLOROthiazide (HYDRODIURIL, ESIDRIX) 25 mg tablet Take 1 tablet by mouth once daily. naproxen (NAPROSYN) 375 mg tablet Take 1 tablet by mouth three times daily as needed (pain). cyclobenzaprine (FLEXERIL) 10 mg tablet Take 1 tablet by mouth twice daily as needed for muscle spasm or pain. ferrous sulfate 325 mg (65 mg iron) tablet Take 1 tablet by mouth daily with breakfast. PNV no.170-iron fum-folic acid (DERMACINRX PRENATRYL) 27 mg iron- 1 mg tab Take 1 tablet by mouth once daily. amoxicillin (AMOXIL) 875 mg tablet Take 1 tablet by mouth two times a day for 7 days. tranexamic acid (LYSTEDA) 650 mg tablet Take 2 tablets by mouth three times daily as needed (heavy menstrual bleeding) for up to 5 days. FAMILY HISTORY Problem Relation Age of Onset Hypertension Mother Asthma Mother Hypertension Father No Known Problems Sister No Known Problems Sister No Known Problems Brother Cancer Maternal Grandmother intestinal Alzheimer's Disease Maternal Grandmother Coronary Artery Disease Maternal Grandfather of this Heart Maternal Grandfather No Known Problems Paternal Grandmother No Known Problems Son No Known Problems Daughter No Known Problems Daughter Stroke Maternal Uncle Breast Cancer Maternal Aunt No Known Problems Son No Known Problems Paternal Grandfather Social History Tobacco Use Smoking status: Some Days Years: 5 Types: Cigarettes Last attempt to quit: 07/25/2008 Years since quittin.7 Smokeless tobacco: Never Tobacco comments: 1-2 cigarettes per week before she quit Vaping Use Vaping Use: Never used Substance Use Topics Alcohol use: Yes Alcohol/week: 10.0 standard drinks of alcohol Types: 4 Cans of Beer (12oz) per week Comment: occassionaly Drug use: No Review of Systems Constitutional: Negative for activity change, appetite change, diaphoresis, fatigue and fever. HENT: Positive for ear pain and sore throat. Negative for congestion, drooling, ear discharge, hoarse voice and trouble swallowing. Eyes: Negative for photophobia, pain, discharge, redness and itching. Respiratory: Negative for cough, shortness of breath and stridor. Cardiovascular: Negative for chest pain, palpitations and leg swelling. Gastrointestinal: Negative for abdominal pain, diarrhea and vomiting. Musculoskeletal: Negative for arthralgias, back pain and neck pain. Skin: Negative for color change, pallor, rash and wound. Allergic/Immunologic: Negative for environmental allergies, food allergies and immunocompromised state (more content not included)... [facility] 05-07-2023 History of Present illness Narrative This note was created using Gander Mountainriter. Subjective Felicity Sosa is a 37 year old female. 37 year old female with PMH HTN, smoker and anemia presents for complaints of illness. Acute onset this morning upon awakening. +sore throat +ear pain, right +lymph node pain Denies cough Denies fever or chills Denies abdominal pain Denies N/V/D Denies skin rash or lesions. +ill contacts, citing she works at a long-term. The history is provided by the patient. No supervisor modern languages was used. Sore Throat This is a new problem. The current episode started today. The problem has been unchanged. Neither side of throat is experiencing more pain than the other. There has been no fever. The pain is at a severity of 6/10. The pain is moderate. Associated symptoms include ear pain and swollen glands. Pertinent negatives include no abdominal pain, congestion, coughing, diarrhea, drooling, ear discharge, headaches, hoarse voice, plugged ear sensation, neck pain, shortness of breath, stridor, trouble swallowing or vomiting. She has had no exposure to strep or mono. She has tried nothing for the symptoms. The treatment provided no relief. PAST MEDICAL HISTORY Diagnosis Date Abnormal glandular Papanicolaou smear of cervix Abn. Pap smear (cervix) AIN grade II anoscopy negative Anemia history of anemia in Chlamydia 2001 Hemorrhoids Hypertension Iron deficiency anemia Obesity (BMI 30.0-34.9) Uterine fibroid PAST SURGICAL HISTORY Procedure Laterality Date COLPOSCOPY CERVIX UPPER/ADJACENT VAGINA Colposcopy HEMORRHOIDECTOMY INTERNAL RUBBER BAND LIGATIONS 08/11/2018 OPHTH XM&EVAL ANES W/WO MANJ GLOBE COMPL 11/24/2018 rectal PAST SURGICAL HISTORY OF STITCHES IN RIGHT HAND AND LEFT FOOT PAST SURGICAL HISTORY OF 11/2018 anoscopy with acetic acid staining and biopsies TONSILLECTOMY PRIMARY/SECONDARY <AGE 11 Tonsillectomy ALLERGIES Lisinopril and Losartan MEDICATIONS LORazepam (ATIVAN) 1 mg tablet Take 1 mg by mouth three times daily as needed. busPIRone (BUSPAR) 5 mg tablet Take 1 tablet by mouth three times daily. hydrOXYzine pamoate (VISTARIL) 25 mg capsule Take 1 capsule by mouth three times daily as needed for anxiety. hydroCHLOROthiazide (HYDRODIURIL, ESIDRIX) 25 mg tablet Take 1 tablet by mouth once daily. naproxen (NAPROSYN) 375 mg tablet Take 1 tablet by mouth three times daily as needed (pain). cyclobenzaprine (FLEXERIL) 10 mg tablet Take 1 tablet by mouth twice daily as needed for muscle spasm or pain. ferrous sulfate 325 mg (65 mg iron) tablet Take 1 tablet by mouth daily with breakfast. PNV no.170-iron fum-folic acid (DERMACINRX PRENATRYL) 27 mg iron- 1 mg tab Take 1 tablet by mouth once daily. amoxicillin (AMOXIL) 875 mg tablet Take 1 tablet by mouth two times a day for 7 days. tranexamic acid (LYSTEDA) 650 mg tablet Take 2 tablets by mouth three times daily as needed (heavy menstrual bleeding) for up to 5 days. FAMILY HISTORY Problem Relation Age of Onset Hypertension Mother Asthma Mother Hypertension Father No Known Problems Sister No Known Problems Sister No Known Problems Brother Cancer Maternal Grandmother intestinal Alzheimer's Disease Maternal Grandmother Coronary Artery Disease Maternal Grandfather of this Heart Maternal Grandfather No Known Problems Paternal Grandmother No Known Problems Son No Known Problems Daughter No Known Problems Daughter Stroke Maternal Uncle Breast Cancer Maternal Aunt No Known Problems Son No Known Problems Paternal Grandfather Social History Tobacco Use Smoking status: Some Days Years: 5 Types: Cigarettes Last attempt to quit: 07/25/2008 Years since quittin.7 Smokeless tobacco: Never Tobacco comments: 1-2 cigarettes per week before she quit Vaping Use Vaping Use: Never used Substance Use Topics Alcohol use: Yes Alcohol/week: 10.0 standard drinks of alcohol Types: 4 Cans of Beer (12oz) per week Comment: occassionaly Drug use: No Review of Systems Constitutional: Negative for activity change, appetite change, diaphoresis, fatigue and fever. HENT: Positive for ear pain and sore throat. Negative for congestion, drooling, ear discharge, hoarse voice and trouble swallowing. Eyes: Negative for photophobia, pain, discharge, redness and itching. Respiratory: Negative for cough, shortness of breath and stridor. Cardiovascular: Negative for chest pain, palpitations and leg swelling. Gastrointestinal: Negative for abdominal pain, diarrhea and vomiting. Musculoskeletal: Negative for arthralgias, back pain and neck pain. Skin: Negative for color change, pallor, rash and wound. Allergic/Immunologic: Negative for environmental allergies, food allergies and immunocompromised state. Neurological: Negative for dizziness, facial asymmetry, light-headedness, numbness and headaches. Hematological: Negative for adenopathy. Does not bruise/bleed easily. Psychiatric/Behavioral: Negative for agitation and behavioral problems. Objective BP 140/90 Pulse 116 Temp 36.8 C (98.3 F) Resp 16 Wt 92.5 kg (204 lb) LMP 02/04/2022 (Within Days) SpO2 97% BMI 32.67 kg/m Physical Exam Vitals and nursing note reviewed. Constitutional: General: She is not in acute distress. Appearance: Normal appearance. She is normal weight. She is not ill-appearing, toxic-appearing or diaphoretic. HENT: Head: Normocephalic and atraumatic. Right Ear: Ear canal and external ear normal. Left Ear: Ear canal and external ear normal. Ears: Comments: Right TM erythematous and bulging Nose: Congestion present. No rhinorrhea. Mouth/Throat: Mouth: Mucous membranes are moist. Pharynx: No oropharyngeal exudate or posterior oropharyngeal erythema. Eyes: General: Right eye: No discharge. Left eye: No discharge. Extraocular Movements: Extraocular movements intact. Conjunctiva/sclera: Conjunctivae normal. Pupils: Pupils are equal, round, and reactive to light. Cardiovascular: Rate and Rhythm: Normal rate and regular rhythm. Pulses: Normal pulses. Heart sounds: Normal heart sounds. No murmur heard. No friction rub. Pulmonary: Effort: Pulmonary effort is normal. No respiratory distress. Breath sounds: Normal breath sounds. No stridor. No wheezing, rhonchi or rales. Chest: Chest wall: No tenderness. Abdominal: General: Abdomen is flat. There is no distension. Palpations: Abdomen is soft. There is no mass. Tenderness: There is no abdominal tenderness. There is no right CVA tenderness, left CVA tenderness, guarding or rebound. Hernia: No hernia is present. Musculoskeletal: General: No swelling, tenderness, deformity or signs of injury. Normal range of motion. Cervical back: Normal range of motion and neck supple. No rigidity. Right lower leg: No edema. Left lower leg: No edema. Lymphadenopathy: Cervical: Cervical adenopathy present. Skin: General: Skin is warm and dry. Coloration: Skin is not jaundiced or pale. Findings: No bruising, erythema, lesion or rash. Neurological: General: No focal deficit present. Mental Status: She is alert and oriented to person, place, and time. Cranial Nerves: No cranial nerve deficit. Sensory: No sensory deficit. Motor: No weakness. Coordination: Coordination normal. Gait: Gait normal. Psychiatric: Mood and Affect: Mood normal. Behavior: Behavior normal. Thought Content: Thought content normal. Judgment: Judgment normal. Assessment and Plan ASSESSMENT/PLAN: 1. Upper respiratory tract infection, unspecified type - ICD9: 465.9, ICD10: J06.9 (primary diagnosis) Acute onset today - Group A strep molecular testing negative - Symptomatic treatment with prn analgesia - Supportive care with fluids and rest - The patient may also use OTC cough and cold meds as needed, warm salt water gargles, throat lozenges and/or OTC throat spray as needed, and nasal saline gtts and suction prn. - Follow up in 3-5 days if symptoms persist or sooner if worsening of symptoms - STREP A MOLECULAR (POC) 2. Acute otitis media, right - ICD9: 382.9, ICD10: H66.91 - Will begin treatment with as per antibiotic as written, see orders - The patient should also be given OTC cough and cold meds as needed, warm salt water gargles, throat lozenges and/or OTC throat spray as needed, and nasal saline gtts and suction prn for the first 5-7 days of treatment. - Supportive care with plenty of fluids, rest, and analgesia prn. - Follow up in 3-5 days if symptoms persist or worsen. Rebecca Escoto APRN.MINE SAFETY DIRECTOR documented in this encounter [facility] 09-06-2022 Miscellaneous Notes Phone call placed patient advised (see prior provider encounter) Patient verbalized understanding, agreed wit plan of care. Vianney Barillas LPN Negative for COVID flu documented in this encounter [facility] 09-06-2022 Note HNO ID: [id number] Author: Alicia Quiroz PA-C Service: ? Author Type: Physician Charging Manipulator Type: Progress Notes Filed: 09/06/2022 10:27 AM Note Text: This note was created using [employer] Mountain[employer]. Subjective Felicity Sosa is a 37 year old female. HPI Presents with the chief complaint of cough and congestion. Her fiance tested positive for COVID today. Her symptoms started yesterday. She has had diarrhea as well. No vomiting. No chest pain or shortness of breath. States she did have COVID about a year ago. Not currently vaccinated. No OTC meds used. Review of Systems Constitutional: Positive for fatigue. Negative for fever. HENT: Positive for congestion, rhinorrhea and sore throat. Negative for ear pain, sinus pressure and sinus pain. Respiratory: Positive for cough. Negative for shortness of breath. Cardiovascular: Negative. Gastrointestinal: Negative. Genitourinary: Negative. Musculoskeletal: Positive for myalgias. Neurological: Positive for headaches. All other systems reviewed and are negative. PAST MEDICAL HISTORY Diagnosis Date Abnormal glandular Papanicolaou smear of cervix Abn. Pap smear (cervix) AIN grade II anoscopy negative Anemia history of anemia in Chlamydia 2001 Hemorrhoids Hypertension Iron deficiency anemia Obesity (BMI 30.0-34.9) Uterine fibroid Current Outpatient Medications Medication Sig Dispense Refill LORazepam (ATIVAN) 1 mg tablet Take 1 mg by mouth three times daily as needed. busPIRone (BUSPAR) 5 mg tablet Take 1 tablet by mouth three times daily. 90 tablet 0 hydrOXYzine pamoate (VISTARIL) 25 mg capsule Take 1 capsule by mouth three times daily as needed for anxiety. 90 capsule 0 hydroCHLOROthiazide (HYDRODIURIL, ESIDRIX) 25 mg tablet Take 1 tablet by mouth once daily. 90 tablet 0 naproxen (NAPROSYN) 375 mg tablet Take 1 tablet by mouth three times daily as needed (pain). 60 tablet 1 cyclobenzaprine (FLEXERIL) 10 mg tablet Take 1 tablet by mouth twice daily as needed for muscle spasm or pain. 12 tablet 0 ferrous sulfate 325 mg (65 mg iron) tablet Take 1 tablet by mouth daily with breakfast. 30 tablet 5 PNV no.170-iron fum-folic acid (DERMACINRX PRENATRYL) 27 mg iron- 1 mg tab Take 1 tablet by mouth once daily. 30 tablet 12 dextromethorphan-guaiFENesin (MUCINEX DM) 30-600 mg per tablet Take 1 tablet by mouth twice daily as needed for cough or cold/allergy symptoms for up to 7 days. 14 tablet 0 acetaminophen (TYLENOL EXTRA STRENGTH) 500 mg tablet Take 1-2 tablets by mouth every 6 hours as needed for pain or fever (specify) for up to 3 days. 24 tablet 0 tranexamic acid (LYSTEDA) 650 mg tablet Take 2 tablets by mouth three times daily as needed (heavy menstrual bleeding) for up to 5 days. 30 tablet 0 No current facility-administered medications for this visit. PAST SURGICAL HISTORY Procedure Laterality Date COLPOSCOPY CERVIX UPPER/ADJACENT VAGINA Colposcopy HEMORRHOIDECTOMY INTERNAL RUBBER BAND LIGATIONS 08/11/2018 OPHTH XMANDEVAL ANES W/WO MANJ GLOBE COMPL 11/24/2018 rectal PAST SURGICAL HISTORY OF STITCHES IN RIGHT HAND AND LEFT FOOT PAST SURGICAL HISTORY OF 11/2018 anoscopy with acetic acid staining and biopsies TONSILLECTOMY PRIMARY/SECONDARY Tonsillectomy FAMILY HISTORY Problem Relation Age of Onset Hypertension Mother Asthma Mother Hypertension Father No Known Problems Sister No Known Problems Sister No Known Problems Brother Cancer Maternal Grandmother intestinal Alzheimer's Disease Maternal Grandmother Coronary Artery Disease Maternal Grandfather of this Heart Maternal Grandfather No Known Problems Paternal Grandmother No Known Problems Son No Known Problems Daughter No Known Problems Daughter Stroke Maternal Uncle Breast Cancer Maternal Aunt No Known Problems Son No Known Problems Paternal Grandfather Social History Tobacco Use Smoking status: Some Days Years: 5.00 Types: Cigarettes Last attempt to quit: 07/25/2008 Years since quittin.1 Smokeless tobacco: Never Tobacco comments: 1-2 cigarettes per week before she quit Vaping Use Vaping Use: Never used Substance Use Topics Alcohol use: Yes Alcohol/week: 10.0 standard drinks Types: 4 Cans of Beer (12oz) per week Comment: occassionaly Drug use: No Objective BP 128/82 Pulse 80 Temp 36.5 ?C (97.7 ?F) (Tympanic) Resp 18 Wt 85 kg (187 lb 6.4 oz) LMP 02/04/2022 (Within Days) SpO2 100% BMI 30.01 kg/m? Physical Exam Vitals reviewed. Constitutional: Appearance: Normal appearance. HENT: Head: Normocephalic and atraumatic. Right Ear: Tympanic membrane, ear canal and external ear normal. Left Ear: Tympanic membrane, ear canal and external ear normal. Nose: Congestion present. Mouth/Throat: Mouth: Mucous membranes are moist. Pharynx: Oropharynx is clear. Cardiovascular: Rate and Rhythm: Normal rate and regular rhythm. Heart sounds: Normal hear (more content not included)... [facility] 09-06-2022 History of Present illness Narrative This note was created using Symptom.ly. Subjective Felicity Sosa is a 37 year old female. HPI Presents with the chief complaint of cough and congestion. Her fiance tested positive for COVID today. Her symptoms started yesterday. She has had diarrhea as well. No vomiting. No chest pain or shortness of breath. States she did have COVID about a year ago. Not currently vaccinated. No OTC meds used. Review of Systems Constitutional: Positive for fatigue. Negative for fever. HENT: Positive for congestion, rhinorrhea and sore throat. Negative for ear pain, sinus pressure and sinus pain. Respiratory: Positive for cough. Negative for shortness of breath. Cardiovascular: Negative. Gastrointestinal: Negative. Genitourinary: Negative. Musculoskeletal: Positive for myalgias. Neurological: Positive for headaches. All other systems reviewed and are negative. PAST MEDICAL HISTORY Diagnosis Date Abnormal glandular Papanicolaou smear of cervix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 DAYS, THEN ONE TABLET TWICE DAILY FOR 2 DAYS, THEN ONE TABLET DAILY FOR UP TO 10 DAYS cyclobenzaprine (FLEXERIL) 10 mg tablet Take 1 tablet by mouth twice daily as needed for muscle spasm or pain. (Patient not taking: Reported on 09/12/2021 ) hydroCHLOROthiazide (HYDRODIURIL, ESIDRIX) 25 mg tablet TAKE 1 TABLET ONCE DAILY (Patient not taking: Reported on 08/07/2021) levonorgestrel (MIRENA) 20 mcg/24 hours (6 yrs) 52 mg IUD 1 Each by INTRAUTERINE route one time only for 1 dose. ferrous sulfate 325 mg (65 mg iron) tablet Take 1 tablet by mouth daily with breakfast. No current facility-administered medications for this visit. Allergies As of Date: 10/24/2021 Allergen Noted Reaction LISINOPRIL 10/10/2017 Cough LOSARTAN 01/12/2019 Other: See Comments Fully Assessed 09/12/2021 REVIEW OF SYSTEMS Abdomen: No bloating, early satiety, indigestion, or increased flatulence. No abdominal pain, nausea, vomiting, diarrhea, or constipation. Allergies and current medication updated:Yes EXAM: BP 110/68 Wt 176 lb (79.8kg) LMP 02/12/2019 GENERAL: pleasant, female in no apparent distress PELVIC: external genitalia normal, normal Bartholin's glands, urethra, Moodus's glands, no vulvar lesions, no cervical lesions, good vaginal support, physiologic discharge present, normal appearing perineal body and perianal region BIMANUAL: no adnexal masses, non-tender and uterus anteverted, 8 week size, boggy, mobile ASSESSMENT AND PLAN: Encounter Diagnosis ICD-10-CM 1. Infection, mycoplasma A49.3 Initially during our discussion I do not think the patient was treated completely for this. However after review of her medication list she was in fact treated adequately. However, I did not realize that her partner had may not affect his medication. At that point an exam has been done with gel so a repeat culture was not obtained. Discussed with the patient I will repeat the culture at her next appointment. Screening Pap smear is done today. Recommend EMB, pelvic ultrasound and some labs for abnormal uterine bleeding. Does have a history of fibroids. Will need contraception as well. We discussed options for this. Will need to discuss further at follow-up visit after labs and US are available. Patient has completed childbearing. Medical Decision Making Machelle Gomez MD documented in this encounter [facility] 09-12-2021 Instructions Neisha Dumas APRN.CNP - 09/12/2021 12:19 PM EDT zithromax 2 tablets at once for exposure to mycoplasma - partner treated Fluconazole, 24 hours after zithromax Will call with test results Abstinence for 7 days after treatment. documented in this encounter [facility] 09-12-2021 History of Present illness Narrative Subjective The history is provided by the patient. No supervisor modern languages was used. CHRIS Sosa is a 36 year old female who presents today for CC of vaginal discharge and itching. This started 2 days ago. She was recently on antibiotics. She also is concerned about possible exposure to STD, desires testing. Current partner is being treated for mycoplasma, patient desires testing and treatment BP 118/82 Pulse 88 Temp 36.7 C (98 F) (Tympanic) Resp 18 Wt 82.4 kg (181 lb 9.6 oz) LMP 02/12/2019 (Exact Date) SpO2 99% BMI 29.08 kg/m Social History Tobacco Use Smoking status: Former Smoker Years: 5.00 Types: Cigarettes Quit date: 07/25/2008 Years since quittin.1 Smokeless tobacco: Never Used Tobacco comment: 1-2 cigarettes per week before she quit Substance Use Topics Alcohol use: Yes Alcohol/week: 10.0 standard drinks Types: 4 Cans of Beer (12oz) per week Comment: occassionaly Drug use: No PAST MEDICAL HISTORY Diagnosis Date Abnormal glandular Papanicolaou smear of cervix Abn. 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 Gastrointestinal: Negative for abdominal pain. Genitourinary: Positive for vaginal discharge. Negative for dysuria, flank pain, frequency, hematuria and urgency. Objective Physical Exam Vitals and nursing note reviewed. Exam conducted with a mud cleaner operator present. Constitutional: Appearance: Normal appearance. Abdominal: General: Bowel sounds are normal. There is no abdominal bruit. Palpations: Abdomen is not rigid. There is no mass or pulsatile mass. Tenderness: There is no abdominal tenderness. There is no guarding or rebound. Negative signs include Lara's sign and McBurney's sign. Genitourinary: Exam position: Lithotomy position. Labia: Right: No rash or lesion. Left: No rash or lesion. Vagina: Vaginal discharge and erythema present. Uterus: Normal. Adnexa: Right adnexa normal and left adnexa normal. Comments: IUD strings visualized Neurological: Mental Status: She is alert and oriented to person, place, and time. Psychiatric: Mood and Affect: Affect normal. ASSESSMENT/PLAN: 1. Acute vaginitis - ICD9: 616.10, ICD10: N76.0 Cultures done Treated today with: 1 gm zithromax - for mycoplasma (this will also cover chlamydia if positive) Fluconazole Will call with other results and if any further treatment needed. - BACTERIAL VAGINOSIS AMPLIFICATION - GC/CHLAMYDIA DNA DET - KOFI / TRICHOMONAS AMPLIFICATION - MYCOPLASMA CULT Diagnosis and treatment plan were discussed and questions were answered to the patient's satisfaction. Pt acknowledged understanding of concepts and follow up plan. Specific signs and symptoms that would indicate the need for higher level of care were discussed in detail warranting prompt ER evaluation. Neisha Dumas APRN.ANITA documented in this encounter [facility] documented as of this encounter (statuses as of 10/27/2021) [facility]2019 History of Past illness Narrative* Problem Noted Date Resolved Date EFRAIN (iron deficiency anemia) 11/19/201811/2021 Last Assessment & Plan: Assessment: on rx, but admits to not taking regularly GBS (group B Streptococcus c arrier), +RV culture, currently 04/02/2012 07/16/2018 Supervision of other high-risk (V23.89) 10/22/2011 07/16/2018 Overview: October 22, 2011 RA done Machelle Gomez MD RR_ H/o SGA infant last delivery- plan US in 3rd trimester to check fluid and EFW. with uncertain dates 10/09/2011 0 02/07/2012 Overview: Pt states her LMP was 07/08/11. Patient called in 10/05/2011 stating she took Plan B on 06/26/2011 and was seen at [facility] ER on 07/17/11 for bleeding with large blood clots. She states the serum hCG was negative in the emergency room. She states she had unprotected intercourse again after the ER visit. Patient states she has a history of irregular menses every 14-56 days. Patient states she believes she has felt movement for the past 3 weeks. Patient is scheduled for an ultrasound tomorrow with José Miguel. Pt states she had a positive HPT early August. History of labor 10/09/2011 019 Overview: Pt has a history of labor with her first child beginning at 32 weeks. She was 13 years old at the time. She was transferred to [facility] where she was hospitalized for over a week and given magnesium sulfate. She went on to deliver at 39 weeks. She had no PTL with her last two pregnancies. Signs and symptoms of PTL discussed and the importance of going to the hospital at onset of PTL should it occur. Hemorrhoids 10/09/2011 10/27/2021 Overview: Patient states she has a history of hemorrhoids. She has noted blood once when she wiped after her bowel movement. Discussed dietary considerations and the importance of avoiding constipation and straining with bowel movements. History of uterine fibroid 10/09/201110/27 Overview: RR- anterior 3 x 3 x 4 cm fibroid. Supervision of other normal 10/04/2008 03/31/2009 documented as of this encounter (statuses as of 11/03/2021) [facility] History of Past illness Narrative* Problem Noted Date Resolved Date EFRAIN (iron deficiency anemia) 11/19/201811/2021 Last Assessment & Plan: Assessment: on rx, but admits to not taking regularly GBS (group B Streptococcus c arrier), +RV culture, currently 04/02/2012 07/16/2018 Supervision of other high-risk (V23.89) 10/22/2011 07/16/2018 Overview: October 22, 2011 RA done Machelle Gomez MD RR_ H/o SGA infant last delivery- plan US in 3rd trimester to check fluid and EFW. with uncertain dates 10/09/2011 0 02/07/2012 Overview: Pt states her LMP was 07/08/11. Patient called in 10/05/2011 stating she took Plan B on 06/26/2011 and was seen at [facility] ER on 07/17/11 for bleeding with large blood clots. She states the serum hCG was negative in the emergency room. She states she had unprotected intercourse again after the ER visit. Patient states she has a history of irregular menses every 14-56 days. Patient states she believes she has felt movement for the past 3 weeks. Patient is scheduled for an ultrasound tomorrow with José Miguel. Pt states she had a positive HPT early August. History of labor 10/09/2011 019 Overview: Pt has a history of labor with her first child beginning at 32 weeks. She was 13 years old at the time. She was transferred to [facility] where she was hospitalized for over a week and given magnesium sulfate. She went on to deliver at 39 weeks. She had no PTL with her last two pregnancies. Signs and symptoms of PTL discussed and the importance of going to the hospital at onset of PTL should it occur. Hemorrhoids 10/09/2011 10/27/2021 Overview: Patient states she has a history of hemorrhoids. She has noted blood once when she wiped after her bowel movement. Discussed dietary considerations and the importance of avoiding constipation and straining with bowel movements. History of uterine fibroid 10/09/201110/27 Overview: RR- anterior 3 x 3 x 4 cm fibroid. Supervision of other normal 10/04/2008 03/31/2009 documented as of this encounter (statuses as of 11/07/2021) [facility] History of Past illness Narrative* Problem Noted Date Resolved Date EFRAIN (iron deficiency anemia) 11/19/201811/2021 Last Assessment & Plan: Assessment: on rx, but admits to not taking regularly GBS (group B Streptococcus c arrier), +RV culture, currently 04/02/2012 07/16/2018 Supervision of other high-risk (V23.89) 10/22/2011 07/16/2018 Overview: October 22, 2011 RA done Machelle Gomez MD RR_ H/o SGA infant last delivery- plan US in 3rd trimester to check fluid and EFW. with uncertain dates 10/09/2011 0 02/07/2012 Overview: Pt states her LMP was 07/08/11. Patient called in 10/05/2011 stating she took Plan B on 06/26/2011 and was seen at [facility] ER on 07/17/11 for bleeding with large blood clots. She states the serum hCG was negative in the emergency room. She states she had unprotected intercourse again after the ER visit. Patient states she has a history of irregular menses every 14-56 days. Patient states she believes she has felt movement for the past 3 weeks. Patient is scheduled for an ultrasound tomorrow with José Miguel. Pt states she had a positive HPT early August. History of labor 10/09/2011 019 Overview: Pt has a history of labor with her first child beginning at 32 weeks. She was 13 years old at the time. She was transferred to [facility] where she was hospitalized for over a week and given magnesium sulfate. She went on to deliver at 39 weeks. She had no PTL with her last two pregnancies. Signs and symptoms of PTL discussed and the importance of going to the hospital at onset of PTL should it occur. Hemorrhoids 10/09/2011 10/27/2021 Overview: Patient states she has a history of hemorrhoids. She has noted blood once when she wiped after her bowel movement. Discussed dietary considerations and the importance of avoiding constipation and straining with bowel movements. History of uterine fibroid 10/09/201110/27 Overview: RR- anterior 3 x 3 x 4 cm fibroid. Supervision of other normal 10/04/2008 03/31/2009 documented as of this encounter (statuses as of 01/29/2022) [facility] History of Past illness Narrative* Problem Noted Date Resolved Date EFRAIN (iron deficiency anemia) 11/19/201811/2021 Last Assessment & Plan: Assessment: on rx, but admits to not taking regularly GBS (group B Streptococcus c arrier), +RV culture, currently 04/02/2012 07/16/2018 Supervision of other high-risk (V23.89) 10/22/2011 07/16/2018 Overview: October 22, 2011 RA done Machelle Gomez MD RR_ H/o SGA infant last delivery- plan US in 3rd trimester to check fluid and EFW. with uncertain dates 10/09/2011 0 02/07/2012 Overview: Pt states her LMP was 07/08/11. Patient called in 10/05/2011 stating she took Plan B on 06/26/2011 and was seen at [facility] ER on 07/17/11 for bleeding with large blood clots. She states the serum hCG was negative in the emergency room. She states she had unprotected intercourse again after the ER visit. Patient states she has a history of irregular menses every 14-56 days. Patient states she believes she has felt movement for the past 3 weeks. Patient is scheduled for an ultrasound tomorrow with José Miguel. Pt states she had a positive HPT early August. History of labor 10/09/2011 019 Overview: Pt has a history of labor with her first child beginning at 32 weeks. She was 13 years old at the time. She was transferred to [facility] where she was hospitalized for over a week and given magnesium sulfate. She went on to deliver at 39 weeks. She had no PTL with her last two pregnancies. Signs and symptoms of PTL discussed and the importance of going to the hospital at onset of PTL should it occur. Hemorrhoids 10/09/2011 10/27/2021 Overview: Patient states she has a history of hemorrhoids. She has noted blood once when she wiped after her bowel movement. Discussed dietary considerations and the importance of avoiding constipation and straining with bowel movements. History of uterine fibroid 10/09/201110/27 Overview: RR- anterior 3 x 3 x 4 cm fibroid. Supervision of other normal 10/04/2008 03/31/2009 documented as of this encounter (statuses as of 05/10/2022) [facility] History of Past illness Narrative* Problem Noted Date Resolved Date EFRAIN (iron deficiency anemia) 11/19/201811/2021 Last Assessment & Plan: Assessment: on rx, but admits to not taking regularly GBS (group B Streptococcus c marina), +RV culture, currently 04/02/2012 07/16/2018 Supervision of other high-risk (V23.89) 10/22/2011 07/16/2018 Overview: October 22, 2011 RA done Machelle Gomez MD RR_ H/o SGA infant last delivery- plan US in 3rd trimester to check fluid and EFW. with uncertain dates 10/09/2011 0 02/07/2012 Overview: Pt states her LMP was 07/08/11. Patient called in 10/05/2011 stating she took Plan B on 06/26/2011 and was seen at [facility] ER on 07/17/11 for bleeding with large blood clots. She states the serum hCG was negative in the emergency room. She states she had unprotected intercourse again after the ER visit. Patient states she has a history of irregular menses every 14-56 days. Patient states she believes she has felt movement for the past 3 weeks. Patient is scheduled for an ultrasound tomorrow with José Miguel. Pt states she had a positive HPT early August. History of labor 10/09/2011 019 Overview: Pt has a history of labor with her first child beginning at 32 weeks. She was 13 years old at the time. She was transferred to [facility] where she was hospitalized for over a week and given magnesium sulfate. She went on to deliver at 39 weeks. She had no PTL with her last two pregnancies. Signs and symptoms of PTL discussed and the importance of going to the hospital at onset of PTL should it occur. Hemorrhoids 10/09/2011 10/27/2021 Overview: Patient states she has a history of hemorrhoids. She has noted blood once when she wiped after her bowel movement. Discussed dietary considerations and the importance of avoiding constipation and straining with bowel movements. History of uterine fibroid 10/09/201110/27 Overview: RR- anterior 3 x 3 x 4 cm fibroid. Supervision of other normal 10/04/2008 03/31/2009 documented as of this encounter (statuses as of 09/06/2022) [facility] History of Past illness Narrative* Problem Noted Date Resolved Date EFRAIN (iron deficiency anemia) 11/19/201811/2021 Last Assessment & Plan: Assessment: on rx, but admits to not taking regularly GBS (group B Streptococcus c marina), +RV culture, currently 04/02/2012 07/16/2018 Supervision of other high-risk (V23.89) 10/22/2011 07/16/2018 Overview: October 22, 2011 RA done Machelle Gomez MD RR_ H/o SGA infant last delivery- plan US in 3rd trimester to check fluid and EFW. with uncertain dates 10/09/2011 0 02/07/2012 Overview: Pt states her LMP was 07/08/11. Patient called in 10/05/2011 stating she took Plan B on 06/26/2011 and was seen at [facility] ER on 07/17/11 for bleeding with large blood clots. She states the serum hCG was negative in the emergency room. She states she had unprotected intercourse again after the ER visit. Patient states she has a history of irregular menses every 14-56 days. Patient states she believes she has felt movement for the past 3 weeks. Patient is scheduled for an ultrasound tomorrow with José Miguel. Pt states she had a positive HPT early August. History of labor 10/09/2011 019 Overview: Pt has a history of labor with her first child beginning at 32 weeks. She was 13 years old at the time. She was transferred to [facility] where she was hospitalized for over a week and given magnesium sulfate. She went on to deliver at 39 weeks. She had no PTL with her last two pregnancies. Signs and symptoms of PTL discussed and the importance of going to the hospital at onset of PTL should it occur. Hemorrhoids 10/09/2011 10/27/2021 Overview: Patient states she has a history of hemorrhoids. She has noted blood once when she wiped after her bowel movement. Discussed dietary considerations and the importance of avoiding constipation and straining with bowel movements. History of uterine fibroid 10/09/201110/27 Overview: RR- anterior 3 x 3 x 4 cm fibroid. Supervision of other normal 10/04/2008 03/31/2009 documented as of this encounter (statuses as of 09/07/2022) [facility] History of Past illness Narrative* Problem Noted Date Diagnosed Date Resolved Date EFRAIN (iron deficiency anemia) 11/19/2018 10/27/2021 Last Assessment & Plan: Assessment: on rx, but admits to not taking regularly GBS (group B Streptococcus c arrier), +RV culture, currently 04/02/2012 07/16/2018 Supervision of other high-ri (V23.89) 10/22/2011 07/16/2018 Overview: October 22, 2011 RA done Machelle Gomez MD RR_ H/o SGA last delivery- plan US in 3rd trimester to check fluid and EFW. with uncertain dates 10/09/2011 02/07/2012 Overview: Pt states her LMP was 07/08/11. Patient called in 10/05/2011 stating she took Plan B on 06/26/2011 and was seen at [facility] ER on 07/17/11 for bleeding with large blood clots. She states the serum hCG was negative in the emergency room. She states she had unprotected intercourse again after the ER visit. Patient states she has a history of irregular menses every 14-56 days. Patient states she believes she has felt movement for the past 3 weeks. Patient is scheduled for an ultrasound tomorrow with José Miguel. Pt states she had a positive HPT early August. History of labor 10/09/2011 Overview: Pt has a history of labor with her first child beginning at 32 weeks. She was 13 years old at the time. She was transferred to [facility] where she was hospitalized for over a week and given magnesium sulfate. She went on to deliver at 39 weeks. She had no PTL with her last two pregnancies. Signs and symptoms of PTL discussed and the importance of going to the hospital at onset of PTL should it occur. Hemorrhoids 10/09/2011 10/27/2021 Overview: Patient states she has a history of hemorrhoids. She has noted blood once when she wiped after her bowel movement. Discussed dietary considerations and the importance of avoiding constipation and straining with bowel movements. History of uterine fibroid 10/09/2011 0 10/27/2021 Overview: RR- anterior 3 x 3 x 4 cm fibroid. Supervision of other normal 10/04/2008 03/31/2009 documented as of this encounter (statuses as of 05/07/2023) [facility] History of Past illness Narrative* Problem Noted Date Diagnosed Date Resolved Date EFRAIN (iron deficiency anemia) 11/19/2018 10/27/2021 Last Assessment & Plan: Assessment: on rx, but admits to not taking regularly GBS (group B Streptococcus c arrier), +RV culture, currently 04/02/2012 07/16/2018 Supervision of other high-ri sk (V23.89) 10/22/2011 07/16/2018 Overview: October 22, 2011 RA done Machelle Gomez MD RR_ H/o SGA infant last delivery- plan US in 3rd trimester to check fluid and EFW. with uncertain dates 10/09/2011 02/07/2012 Overview: Pt states her LMP was 07/08/11. Patient called in 10/05/2011 stating she took Plan B on 06/26/2011 and was seen at [facility] ER on 07/17/11 for bleeding with large blood clots. She states the serum hCG was negative in the emergency room. She states she had unprotected intercourse again after the ER visit. Patient states she has a history of irregular menses every 14-56 days. Patient states she believes she has felt movement for the past 3 weeks. Patient is scheduled for an ultrasound tomorrow with José Miguel. Pt states she had a positive HPT early August. History of labor 10/09/2011 Overview: Pt has a history of labor with her first child beginning at 32 weeks. She was 13 years old at the time. She was transferred to [facility] where she was hospitalized for over a week and given magnesium sulfate. She went on to deliver at 39 weeks. She had no PTL with her last two pregnancies. Signs and symptoms of PTL discussed and the importance of going to the hospital at onset of PTL should it occur. Hemorrhoids 10/09/2011 10/27/2021 Overview: Patient states she has a history of hemorrhoids. She has noted blood once when she wiped after her bowel movement. Discussed dietary considerations and the importance of avoiding constipation and straining with bowel movements. History of uterine fibroid 10/09/2011 0 10/27/2021 Overview: RR- anterior 3 x 3 x 4 cm fibroid. Supervision of other normal 10/04/2008 03/31/2009 documented as of this encounter (statuses as of 07/28/2023) [facility] History of Past illness Narrative* Problem Noted Date Resolved Date GBS (group B Streptococcus c arrier), +RV culture, currently 04/02/2012 07/16/2018 Supervision of other high-risk (V23.89) 10/22/2011 07/16/2018 Overview: October 22, 2011 RA done Machelle Gomez MD RR_ H/o SGA infant last delivery- plan US in 3rd trimester to check fluid and EFW. with uncertain dates 10/09/2011 0 02/07/2012 Overview: Pt states her LMP was 07/08/11. Patient called in 10/05/2011 stating she took Plan B on 06/26/2011 and was seen at [facility] ER on 07/17/11 for bleeding with large blood clots. She states the serum hCG was negative in the emergency room. She states she had unprotected intercourse again after the ER visit. Patient states she has a history of irregular menses every 14-56 days. Patient states she believes she has felt movement for the past 3 weeks. Patient is scheduled for an ultrasound tomorrow with José Miguel. Pt states she had a positive HPT early August. History of labor 10/09/2011 019 Overview: Pt has a history of labor with her first child beginning at 32 weeks. She was 13 years old at the time. She was transferred to [facility] where she was hospitalized for over a week and given magnesium sulfate. She went on to deliver at 39 weeks. She had no PTL with her last two pregnancies. Signs and symptoms of PTL discussed and the importance of going to the hospital at onset of PTL should it occur. Supervision of other normal 10/04/2008 03/31/2009 documented as of this encounter (statuses as of 09/12/2021) [facility] History of Past illness Narrative* Problem Noted Date Resolved Date GBS (group B Streptococcus c arrier), +RV culture, currently 04/02/2012 07/16/2018 Supervision of other high-risk (V23.89) 10/22/2011 07/16/2018 Overview: October 22, 2011 RA done Machelle Gomez MD RR_ H/o SGA last delivery- plan US in 3rd trimester to check fluid and EFW. with uncertain dates 10/09/2011 0 02/07/2012 Overview: Pt states her LMP was 07/08/11. Patient called in 10/05/2011 stating she took Plan B on 06/26/2011 and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
--- NOTE | 2023-07-29 19:56 | CT_ITS ---
EXAM: CT HEAD WITHOUT AND WITH INTRAVENOUS CONTRAST CLINICAL INDICATION: headache TECHNIQUE: Multiple axial images were obtained of the head without and with intravenous contrast. CTDIvol = ( 29.96 ) mGy, DLP = ( 1304.86 ) mGycm This CT exam was performed using one or more of the following dose reduction techniques: automated exposure control, adjustment of the mA and/or kV according to patient size, and/or use of iterative reconstruction technique. CONTRAST: IV 100mL Isovue-[id number] COMPARISON: February 02, 2016 CT FINDINGS: BRAIN AND EXTRA-AXIAL SPACES: Unremarkable. No intra- or extra-axial hemorrhage. No evidence of acute infarct. No intracranial mass or mass effect. There is preservation of the deras/white matter interface. Posterior fossa structures are unremarkable. Ventricles are appropriate for age. No hydrocephalus. Basal cisterns are patent. BONES/JOINTS: Unremarkable. No discrete lytic or blastic abnormalities. SINUSES: Unremarkable as visualized. Clear. MASTOID AIR CELLS: Unremarkable. Clear. ORBITS: Visualized globes, extraocular muscles, optic nerves and retrobulbar fat appear unremarkable. CT/CTA Head W/WO Contrast IMPRESSION: Negative head/brain CT without and with intravenous contrast. [employer] program was used to assist in the detection of abnormal findings. Electronically Signed: Elfego Lowry MD at 22:07 EST ,
[2023-07-29 20:00] VITALS: BP 155/115; PULSE 84; RESP 16; O2SAT 99
--- NOTE | 2023-07-29 20:00 | EDS_ITS ---
HPI History of Present Illness Chief Complaint: Headache Informant: patient Narrative Narrative: Patient presents with a couple complaints. On Saturday she stated she just started not feeling well. She felt like she had a cold. She had some muscle aches and nonproductive cough runny nose sore throat. This continued on Saturday. She was seen in urgent care yesterday. They did COVID, influenza AB and RSV all of which were negative. During this entire time she has felt like her left eyelid is a little swollen. This causes a little bit of blurring of her vision but is not worsening. Sometime today is when her headache started. Triage mentioned the headache starting Saturday but I have asked her 3 times. She states she had no headache until today. She was at work. She is not exactly sure when it started but probably sometime around 10 AM. It started slowly but it has slowly worsened. It was not thunderclap. It is mostly in the frontal area and a little bit more left behind the left eye than other areas. No nausea vomiting. No numbness tingling. She also notes that her blood pressure is up. She has a history of high blood pressure. Supposed to be taking hydrochlorothiazide. But she has not been taking it for a while. She was trying to manage it with diet and all of leaves and other treatment but this has not worked out well for her. She stated she does not have a history of migraines but she does have a history of migraines listed on her past medical history. [facility] Medical History Fibroids Iron deficiency anemia Migraine headache Home Medications cyclobenzaprine 10 mg tablet 10 mg PO TID PRN Muscle Spasm ##20 05/08/17 [Rx Last Taken Unknown] hydrocodone-acetaminophen 5-325mg 5mg-325mg 1 - 2 tab PO Q4H PRN PRN Pain ##20 05/08/17 [Rx Last Taken Unknown] losartan 25 mg tablet 25 mg PO DAILY PRN HTN 05/08/17 [History Last Taken Unk nown] norethindrone acetate 5 mg tablet (Aygestin) See Rx Instructions .Route .COMPLEX #39 tabs 10/14/21 [Rx Last Taken Unknown] lorazepam 1 mg tablet (Ativan) 1 mg PO TID PRN anxiety #10 tabs 05/06/22 [Rx Last Taken Unknown] hydrochlorothiazide 25 mg tablet 25 mg PO DAILY #30 tabs 07/29/23 [Rx Last Taken Unknown] Allergy/AdvReac Type Severity Reaction Status Date / Time No Known Allergies Allergy Verified 07/29/23 17:23 Surgical History History of tonsillectomy Social History Smoking Status: Never smoker ROS ROS ED ROS Narrative A complete review of systems was performed and is negative except as documented in the history of present illness. Some specific details below. Constitutional: She has felt ill recently. She feels like she has a viral syndrome but has been checked for common current viruses that were all negative yesterday. EYE: No discharge, she states sometimes she feels like her left eye is a little bit blurry. She has to blink several times. No notable discharge. She feels as though the eyelid is a little swollen. ENT: She did have some sore throat and nasal congestion. This is still present but is a little better. CV: No chest pain, pressure or aching. No palpitations or irregular beats. Patient has not been presyncopal or syncopal. Respiratory: No trouble breathing. But she has had a mild nonproductive cough. No wheezing. No sputum production. No pain with breathing. GI: No abdominal pain. No nausea vomiting diarrhea. No blood in stool. : No frequency dysuria or hematuria. Musculoskeletal: No recent trauma. She has had some mild myalgias. Skin: No rash. No diaphoresis. Neuro: No weakness or numbness. No difficulty with speaking. No difficulty understanding speech. No visual loss. Please see history of present illness also. Endocrine: No polyuria or polydipsia. EXAM Physical Exam Narrative Exam Narrative: CONSTITUTIONAL: Patient is nontoxic in appearance. The patient looks comfortable. HEENT: No notable trauma. Mucous membranes moist. No sinus tenderness. Tympanic membranes are normal. No temporal artery tenderness. No facial rashes or swelling other than her left upper eyelid. EYES: No conjunctival injection. No proptosis. No pain with range of motion. Funduscopic exam shows no marked abnormalities. Vessels look good. I do not see any significant AV nicking. Pupils are equal and reactive. Patient's eyelid on the left does look a little bit full on the lateral aspect of the left eye only. But is not red or warm or tender. No ptosis. NECK: No meningismus. No JVD. Range of motion is normal looking up down left and right without discomfort. CARDIOVASCULAR: Regular rate. Regular rhythm. No notable murmur. No JVD. RESPIRATORY: No respiratory distress. Breathing is unlabored. No wheezes. No rhonchi. No rales. No pain with a deep breath. GASTROINTESTINAL: Not distended. Bowel sounds are normal. No tenderness. GENITOURINARY: No tenderness over the bladder. No CVA tenderness. MUSCULOSKELETAL: Atraumatic. No peripheral edema. No cord. No tenderness along the deep venous system. No asymmetry. NEUROLOGICAL: Patient is alert and oriented. No focal deficit noted. NIH stroke scale is 0. SKIN: No noted rashes. No diaphoresis. No vesicles noted. PSYCHIATRIC: Patient is calm. Mood is appropriate. Const Vital Signs: 07/29/23 17:23 07/29/23 20:00 07/29/23 21:00 Temperature 96.8 F L Temperature Source Temporal Pulse Rate 96 84 75 Respiratory Rate 18 16 16 Blood Pressure 158/106 H 155/115 H 168/119 H Blood Pressure Mean 123 128 135 Pulse Ox 100 99 98 Oxygen Delivery Method Room Air Room Air Room Air MDM MDM MDM Narrative Medical decision making narrative: Patient's CBC shows mild anemia but is otherwise normal. Patient's electrolytes were overall normal including renal function. Patient's serum is negative. My independent interpretation of her CT of the head shows no acute process and the final reading of the CT and CTA shows no acute process. Patient's blood pressure has been up here. I will give her some meds here. She has had problems with losartan and lisinopril causing significant cough. She states she was on hydrochlorothiazide only before. I told her my suspicion is she may need more meds than that but I think it is a reasonable start. She will follow-up with her primary physician. I also recommended she see ophthalmology as she has had longstanding hypertension also. Lab Data Attestation: I reviewed the patient's lab results. Labs: Laboratory Results - last 24 hr 07/29/23 20:10 WBC 6.8 RBC 4.09 L Hgb 11.6 L Hct 36.7 L MCV 89.7 MCH 28.4 MCHC 31.6 L RDW Std Deviation 47.1 H RDW Coeff of Jermaine 14.3 Plt Count 313 MPV 9.0 Immature Gran % (Auto) 0.400 Neut % (Auto) 49.5 Lymph % (Auto) 32.4 [place] % (Auto) 10.3 H Eos % (Auto) 6.8 H Baso % (Auto) 0.6 Absolute Neuts (auto) 3.4 Absolute Lymphs (auto) 2.20 Nucleated RBC % 0 Sodium 140 Potassium 3.8 Chloride 108 H Carbon Dioxide 27.0 Anion Gap 5 BUN 21 H Creatinine 1.01 Estim Creat Clear Calc 87.69 Est GFR (MDRD) Af Amer 78 Est GFR (MDRD) Non-Af 65 BUN/Creatinine Ratio 20.8 H Glucose 114 H Calcium 8.9 Serum , Qual NEGATIVE Radiography Diagnostic Testing: Clinical Impression(s) from Imaging Studies Head CTA 07/29/23 19:56 IMPRESSION: Negative head/brain CT without and with intravenous contrast. AIDOC program was used to assist in the detection of abnormal findings. Electronically Signed: Elfego Lowry MD at 22:07 EST Reading Location ID and State: [facility] / [place] Tel , Service support , Discharge Plan Triage Chief Complaint: Headache ED Provider: Jules Sheridan Dx/Rx/DC Orders Clinical Impression: Changes in vision, Acute viral syndrome, Headache, Swelling of eyelid Instructions: ED Headache Unspecified Prescriptions: New hydrochlorothiazide 25 mg tablet 25 mg PO DAILY Qty: 30 0RF No Action losartan 25 MG tablet 25 mg PO DAILY PRN (Reason: HTN) Patient Comments: TAKE 1 TABLET DAILY cyclobenzaprine 10 MG tablet 10 mg PO TID PRN (Reason: Muscle Spasm) Qty: 20 0RF hydrocodone-acetaminophen 1 TABLET tablet 1 - 2 tab PO Q4H PRN PRN (Reason: Pain) Qty: 20 0RF norethindrone acetate [Aygestin] 5 mg tablet See Rx Instructions .ROUTE .COMPLEX Qty: 39 0RF Rx Instructions: 1 tab po QID until bleeding stops; then, 1 tab p.o. TID x 3d, then 1 tab p.o. BID x 2d, then 1 tab po daily up to 10d lorazepam [Ativan] 1 mg tablet 1 mg PO TID PRN (Reason: anxiety) Qty: 10 0RF Primary Care Provider: Erick Olvera Referrals: Erick Olvera MD [Primary Care Provider] - As soon as possible Alyssa Kellogg MD [Med Staff - Active Staff] - As soon as possible Disposition Disposition: Home, Self Care
[2023-07-29] MEDS: 0.9% Normal Saline (1000mL) 1,000 ML 1000 ML IV (20:12)
[2023-07-29 20:26] LABS: Absolute Neutrophil Count 3.4 X10^3/uL (2.0-7.7); Basophil# 0.04 X10^3/uL; Basophil% 0.6 % (0-1); Eosinophil# 0.46 X10^3/uL; Eosinophils% 6.8 % (0-5); Hematocrit 36.7 % (37-47); Hemoglobin 11.6 g/dL (12.0-15.0); Lymphocyte % 32.4 % (19-41); Mean Corp Hgb Conc 31.6 g/dL (32-36); Mean Corpuscular Hgb 28.4 pg (27.0-32.0); Mean Corpuscular Volume 89.7 fL (81-99); Monocyte% 10.3 % (0-10); NRBC Flagged by Analyzer 0 % (0-5); Neutrophil # 3.37 X10^3/uL (2.7-7.7); Neutrophil % 49.5 % (47-70); Platelet Count 313 K/mm3 (150-450); RBC Distribution Width CV 14.3 % (11.6-14.6); RBC Distribution Width SD 47.1 fl (35.1-43.9); Red Blood Count 4.09 M/mm3 (4.2-5.4); White Blood Count 6.8 K/mm3 (4.4-11.0)
[2023-07-29 20:46] LABS: Internal QC Validated? YES +Cl - CLEAR BKGD; Pregnancy, Serum, hCG Quali. NEGATIVE Negative
[2023-07-29 20:49] LABS: Anion Gap 5 (5-15); BUN 21 mg/dL (7-18); BUN/Creat Ratio 20.8 RATIO (10-20); Calcium,Total 8.9 mg/dL (8.5-10.1); Chloride 108 mmol/L (98-107); Creatinine, Serum 1.01 mg/dL (0.55-1.02); EST Glomerular Filtration Rate 65 mL/min (>60); Est Glom Filt Rate - Afr Amer 78 mL/min (>60); Estimated Creatinine Clearance 87.69 ml/min; Glucose 114 mg/dL (74-106); Potassium 3.8 mmol/L (3.5-5.1); Sodium Level 140 mmol/L (136-145)
[2023-07-29 21:00] VITALS: BP 168/119; PULSE 75; RESP 16; O2SAT 98
[2023-07-29 22:22] VITALS: BP 156/112
[2023-07-29] MEDS: hydrALAZINE 20 MG/ML Vial 10 MG IV (22:30)
[2023-07-29] MEDS: hydroCHLOROthiazide 25 MG Tablet PO (22:42)
[2023-07-29 22:45] VITALS: BP 145/103; PULSE 81; RESP 16; O2SAT 97
== END 2023-07-29 22:46 | disposition home or self-care (01) ==
PROVIDERS: Emergency Provider Emergency Medicine; PCP Family Medicine; Visit Provider Emergency Medicine
DX: B34.9 Viral infection, unspecified (principal); R51.9 Headache, unspecified; R22.0 Localized swelling, mass and lump, head
CPT/HCPCS: 70496; 80048; 84703; 85025; 96361; 96374; 99283; J7030; Q9967; A4216

== ENCOUNTER 2024-09-09 15:14 | Outpatient (CLI) | payer OTHER, SELFPAY ==
--- NOTE | 2024-09-09 15:19 | US_ITS ---
EXAM: BIOPHYSICAL PROF W/O NON STRES (USBIOWO) 09/09/2024 CLINICAL HISTORY: NONREACTIVE NST COMPARISON: None. TECHNIQUE: A limited transabdominal obstetrical ultrasound was performed to determine biophysical profile score. FINDINGS: A single intrauterine gestation is identified. Breathing movement: 2 Gross Body movement: 2 Tone: 2 Qualitative Amniotic Fluid: 2 Amniotic Fluid Index: 19.0 (normal 5-25), deepest vertical pocket 6.9 (normal 2-8). presentation: Cephalic. heart rate: Regular, 140 bpm. Placenta: Anterior. US/Biophysical Prof W/O Non Stres IMPRESSION: 1. Biophysical profile score 8 out of a possible 8. 2. Additional description as above. Reading Location: [id number]
[2024-09-09 15:55] LABS: Hematocrit 31.9 % (37-47); Hemoglobin 10.6 g/dL (12.0-15.0); Mean Corp Hgb Conc 33.2 g/dL (32-36); Mean Corpuscular Hgb 28.6 pg (27.0-32.0); Mean Platelet Vol. 8.7 fl (6.2-12.0); Platelet Count 247 K/mm3 (150-450); RBC Distribution Width CV 13.8 % (11.6-14.6); RBC Distribution Width SD 43.5 fl (35.1-43.9); Red Blood Count 3.71 M/mm3 (4.2-5.4); White Blood Count 6.7 K/mm3 (4.4-11.0)
[2024-09-09 16:23] VITALS: PULSE 89; O2SAT 99
[2024-09-09 16:25] VITALS: BP 133/80; PULSE 83; RESP 16; TEMP 36.6
[2024-09-09 16:28] VITALS: BMI 38.8
[2024-09-09 16:40] VITALS: BP 140/87; PULSE 84
[2024-09-09 16:53] LABS: AST(SGOT) 19 U/L (<=31); Alanine Aminotransfer ALT/SGPT 9 U/L (<=34); Creatinine, Serum 0.57 mg/dL (0.70-1.20); EST Glomerular Filtration Rate 118 (>60); Estimated Creatinine Clearance 164.16 ml/min (50-250); Uric Acid 3.5 mg/dL (2.6-6.0)
--- NOTE | 2024-09-09 21:12 | OB.TRI.NOTE ---
HPI - General General Date of Admission: 09/09/24 Date of Service: 09/09/24 Chief Complaint: deceleration in the office HPI Narrative SHAYNA SOSA, is a 39 F who presents from office for monitoring and BPP. Reactive NST in office but one late appearing decel. Good FM. No GOLDSTEIN or visual changes. complicated by HTN and Adv. maternal age Maternal Data Information Gestational age: 31 4/7 [facility] Medical History Fibroids Iron deficiency anemia Migraine headache Home Medications ?Medication ?Instructions ?Recorded ?Last Taken ?Type losartan 25 mg tablet 25 mg PO DAILY PRN HTN 05/08/17 Unknown History hydrochlorothiazide 25 mg tablet 25 mg PO DAILY #30 tabs 07/29/23 Unknown Rx aspirin 81 mg tablet,delayed 81 mg PO DAILY 09/09/24 09/08/24 20:00 History release (Romi Low Dose Aspirin) 81 mg ferrous sulfate 325 mg (65 mg 325 mg PO QODAY 09/09/24 09/08/24 19:00 History iron) tablet (iron) 325 mg labetaloL 300 mg PO DAILY 09/09/24 09/09/24 History Allergy/AdvReac Type Severity Reaction Status Date / Time lisinopril AdvReac Mild dry cough Verified 09/09/24 15:36 losartan AdvReac Mild dry cough Verified 09/09/24 15:36 Surgical History History of tonsillectomy Social History Smoking Status: Never smoker NST FHR Rate Baby A Baseline: 130 Variability:: Moderate Accelerations:: 15 x 15 Decelerations:: None NST Reactive:: Yes Uterine Activity:: no regular ctxs Assessment & Plan (1) Advanced maternal age (AMA) in : PLAN: Preeclampsia labs drawn today. Blood pressure medication increased in the office. BPP is now 10 out of 10, no further decelerations noted on monitoring strip here. DC home with kick counts and follow-up within a week or as needed. No signs or symptoms of preeclampsia at this time. (2) Supervision of high risk elderly multigravida in third trimester: (3) 31 weeks gestation of : (4) Chronic hypertension affecting :
[2024-09-09 22:38] LABS: Protein, Urine (Random) 7.2 mg/dL (0.0-12.0)
[2024-09-09 22:50] LABS: Protein:Creat Ratio 74 mg/g CRE (0-200)
== END 2024-09-09 17:15 | disposition home or self-care (01) ==
LOC: WPOUT 15:17 → WP 15:17
PROVIDERS: PCP Family Medicine; Referring Provider Obstetrics & Gynecology; Visit Provider Obstetrics & Gynecology
DX: O10.913 Unspecified pre-existing hypertension complicating pregnancy, third trimester (principal); O99.013 Anemia complicating pregnancy, third trimester; D50.9 Iron deficiency anemia, unspecified; O09.523 Supervision of elderly multigravida, third trimester; Z3A.31 31 weeks gestation of pregnancy; Z79.82 Long term (current) use of aspirin; Z79.899 Other long term (current) drug therapy
CPT/HCPCS: 36415; 59025; 59050; 76819; 82565; 82570; 84156; 84450; 84460; 84550; 85027; 99221; G0378

== ENCOUNTER 2024-10-22 14:15 | Inpatient (IN) | payer OTHER, MEDICAID, SELFPAY ==
[2024-10-22] VITALS (35 sets, daily range): BP systolic 111–181; BP diastolic 77–98; PULSE 70–103; RESP 14–18; TEMP 36.1–36.7; O2SAT 20–100; BMI 38.1
[2024-10-22 14:10] LABS: Hematocrit 32.2 % (37-47); Hemoglobin 10.6 g/dL (12.0-15.0); Mean Corp Hgb Conc 32.9 g/dL (32-36); Mean Corpuscular Hgb 28.2 pg (27.0-32.0); Mean Corpuscular Volume 85.6 fL (81-99); Mean Platelet Vol. 9.2 fl (6.2-12.0); Platelet Count 256 K/mm3 (150-450); RBC Distribution Width CV 13.9 % (11.6-14.6); RBC Distribution Width SD 43.4 fl (35.1-43.9); Red Blood Count 3.76 M/mm3 (4.2-5.4); White Blood Count 7.8 K/mm3 (4.4-11.0)
[2024-10-22] MEDS: 0.9% Saline Lock 10 ML Syringe IV ×3 (14:36→19:09)
[2024-10-22] MEDS: Lactated Ringers 1,000 ML 50 ML IV (14:36)
[2024-10-22] MEDS: LACTATED RINGERS 500 ML 999 ML IV (14:36)
[2024-10-22] MEDS: Acetaminophen 500 MG Tablet PO (14:42)
[2024-10-22] MEDS: Labetalol 200 MG Tablet 300 MG PO (14:42)
[2024-10-22 15:19] LABS: AST(SGOT) 16 U/L (<=31); Alanine Aminotransfer ALT/SGPT 9 U/L (<=34); Creatinine, Serum 0.59 mg/dL (0.70-1.20); EST Glomerular Filtration Rate 117 (>60); Uric Acid 3.6 mg/dL (2.6-6.0)
[2024-10-22 15:24] LABS: Protein, Urine (Random) 21.6 mg/dL (0.0-12.0); Protein:Creat Ratio 65 mg/g CRE (0-200)
[2024-10-22 15:38] LABS: Syphilis Antibodies Nonreactive (Nonreactive)
[2024-10-22] MEDS: Sodium Citrate/Citric Acid 30 ML UDC PO (15:38)
[2024-10-22] MEDS: Cefazolin 2 GM in 0.9% Normal Saline (100mL Bag) 100 ML IV (15:46)
--- NOTE | 2024-10-22 15:57 | HP.PCM.OB_ITS ---
HPI - General General Date of Admission: 10/22/24 Date of Service: 10/22/24 Chief Complaint: elevated BP HPI Narrative SHAYNA SOSA, is a 39 F who presents Maternal Data Information Final [facility]: 11/07/24 Gestational age: 37 5/7 [facility] Medical History (Updated 10/22/24 @ 15:[address] Machelle Gomez MD) Chronic hypertension Migraine headache Iron deficiency anemia Fibroids Home Medications ?Medication ?Instructions ?Recorded ?Last Taken ?Type hydrochlorothiazide 25 mg tablet 25 mg PO DAILY #30 ta bs 07/29/23 Unknown Rx Held on 10/22/24. Instructions: not taking during aspirin 81 mg tablet,delayed 81 mg PO DAILY 09/09/24 0 10/21/24 History release (Romi Low Dose Aspirin) ferrous sulfate 325 mg (65 mg 325 mg PO QODAY 09/09/24 10/21/24 History iron) tablet (iron) labetaloL 300 mg PO DAILY 09/09/2407/18 History Allergy/AdvReac Type Severity Reaction Status Date / Time lisinopril AdvReac Mild dry cough Verified 10/22/24 14:05 losartan AdvReac Mild dry cough Verified 10/22/24 14:05 Surgical History (Updated 10/22/24 @ 14:55 by Kiana Cervantes) History of surgery History of tonsillectomy Social History Smoking Status: Former smoker History Elective abortions Hx Para 4 Spontaneous abortions Hx # Term Pregnancies Ectopic pregnancies Hx # Pregnancies Multiple births # of living children Vital Signs Vital Signs Vital Signs: 10/22/24 13:30 10/22/24 13:30 10/22/24 13:30 Temperature 97.8 F Temperature Source Temporal Pulse Rate Respiratory Rate 18 Blood Pressure Blood Pressure Mean BP Systolic BP Diastolic Blood Pressure Source Blood Pressure Position Blood Pressure Location Pulse Ox Oxygen Delivery Method 10/22/24 13:55 10/22/24 13:55 10/22/24 13:56 Temperature Temperature Source Pulse Rate 103 H Respiratory Rate Blood Pressure 143/98 H Blood Pressure Mean BP Systolic 143 BP Diastolic 98 Blood Pressure Source Blood Pressure Position Blood Pressure Location Pulse Ox 99 Oxygen Delivery Method 10/22/24 13:56 10/22/24 13:56 10/22/24 13:56 Temperature Temperature Source Pulse Rate 101 H Respiratory Rate 16 Blood Pressure Blood Pressure Mean BP Systolic BP Diastolic Blood Pressure Source Blood Pressure Position Blood Pressure Location Pulse Ox 98 Oxygen Delivery Method 10/22/24 14:10 10/22/24 14:10 10/22/24 14:25 Temperature Temperature Source Pulse Rate 96 Respiratory Rate Blood Pressure 147/94 H 146/92 H Blood Pressure Mean BP Systolic 147 146 BP Diastolic 94 92 Blood Pressure Source Blood Pressure Position Blood Pressure Location Pulse Ox Oxygen Delivery Method 10/22/24 14:25 10/22/24 14:40 10/22/24 14:40 Temperature Temperature Source Pulse Rate 99 100 Respiratory Rate Blood Pressure 145/93 H Blood Pressure Mean BP Systolic 145 BP Diastolic 93 Blood Pressure Source Blood Pressure Position Blood Pressure Location Pulse Ox Oxygen Delivery Method 10/22/24 14:49 10/22/24 14:49 10/22/24 14:55 Temperature Temperature Source Pulse Rate 96 Respiratory Rate Blood Pressure 138/85 H Blood Pressure Mean BP Systolic 138 BP Diastolic 85 Blood Pressure Source Blood Pressure Position Blood Pressure Location Pulse Ox 99 Oxygen Delivery Method 10/22/24 14:55 10/22/24 15:15 10/22/24 15:15 Temperature Temperature Source Pulse Rate 93 93 Respiratory Rate Blood Pressure Blood Pressure Mean BP Systolic BP Diastolic Blood Pressure Source Blood Pressure Position Blood Pressure Location Pulse Ox 99 Oxygen Delivery Method 10/22/24 15:20 10/22/24 15:20 10/22/24 15:25 Temperature Temperature Source Pulse Rate 97 Respiratory Rate Blood Pressure 144/88 H Blood Pressure Mean BP Systolic 144 BP Diastolic 88 Blood Pressure Source Blood Pressure Position Blood Pressure Location Pulse Ox 98 Oxygen Delivery Method 10/22/24 15:25 10/22/24 15:25 10/22/24 15:25 Temperature Temperature Source Pulse Rate 96 85 Respiratory Rate Blood Pressure Blood Pressure Mean BP Systolic BP Diastolic Blood Pressure Source Blood Pressure Position Blood Pressure Location Pulse Ox 99 Oxygen Delivery Method 10/22/24 15:30 10/22/24 15:30 10/22/24 15:35 Temperature Temperature Source Pulse Rate 93 92 Respiratory Rate Blood Pressure Blood Pressure Mean BP Systolic BP Diastolic Blood Pressure Source Blood Pressure Position Blood Pressure Location Pulse Ox 98 Oxygen Delivery Method 10/22/24 15:35 10/22/24 15:39 10/22/24 15:40 Temperature 97.2 F L Temperature Source Temporal Pulse Rate 92 Respiratory Rate 18 Blood Pressure 181/97 H 181/97 H Blood Pressure Mean 125 BP Systolic 181 BP Diastolic 97 Blood Pressure Source Monitor Blood Pressure Position Semi-Fowlers Blood Pressure Location Right Arm Pulse Ox 99 99 Oxygen Delivery Method Room Air 10/22/24 15:40 Temperature Temperature Source Pulse Rate 87 Respiratory Rate Blood Pressure Blood Pressure Mean BP Systolic BP Diastolic Blood Pressure Source Blood Pressure Position Blood Pressure Location Pulse Ox Oxygen Delivery Method Weight Weight: 110.2 kg Body Mass Index (BMI) 38.1 Physical Exam Const alert and no apparent distress General Appearance: cooperative HEENT normocephalic Resp normal respiratory effort Cardio regular rate GI soft to palpation GI Narrative: gravid, nontender, appropriate for gestational age Extremity no calf tenderness General Extremity: edema Skin no wounds Rashes: No rashes noted Psych activity/motor behavior normal Labs Labs Labs: Blood Type O POSITIVE Antibody Screen Pending Hct 32.2 % (37-47) L Hgb 10.6 g/dL (12.0-15.0) L Syphilis Total Ab Nonreactive (Nonreactive) Rubella IgG Antibody Reactive (Nonreactive) Assessment & Plan (1) Chronic hypertension affecting : (2) Supervision of high risk elderly multigravida in third trimester: (3) Advanced maternal age (AMA) in : (4) 37 weeks gestation of : (5) Non-reassuring electronic monitoring tracing: (6) Maternal obesity syndrome in third trimester: (7) Obesity, Class II, BMI 35-39.9: (8) Consultation for sterilization: PLAN: Plan Patient presented to labor and delivery for evaluation due to having elevated blood pressures in the office, had a nonreactive nonstress test but BPP of 8 out of 8. When she arrived her blood pressures were elevated but her labs were negative for preeclampsia. However she had persistent category 2 heart tracing despite resuscitative measures. Her cervix was still 1 cm and she was remote from delivery. She had some deep variable decelerations and some late decelerations despite minimal contractions. At that point discussed with the patient risk benefits and alternatives to primary section for nonreassuring heart tones persistent category 2 heart tracing remote from delivery. She desired proceed. She also desires permanent sterilization. She understands this permanent, irreversible risk and failure and regret and she understands options of reversible contraceptive options.
[2024-10-22] MEDS: metroNIDAZOLE 500 MG/100 ML BAG 100 MG IV (16:03)
[2024-10-22] MEDS: TRANEXAMIC ACID 1,000 MG in 0.9% Normal Saline (100mL Bag) 100 ML 440 MG IV (16:04)
--- NOTE | 2024-10-22 16:12 | PLAC_PTH ---
PATIENT: SHAYNA SOSA II LOC: [facility] U#:[id number] AGE/SX: 39/F ROOM: WP010 RE10/22/[address]: Dr. Machelle Gomez MD : 1985 BED: 1 DIS: 10/23/2024 SPEC #: [id number] RECD: 10/23/24 09:24 STATUS: BRAYDEN CHAMBERLAIN #: [id number] KAYLA: 10/22/24 16:[address]: Machelle Gomez DEPT: SURGICAL PATHOLOGY RECD BY: Mary Dyer ENTERED: 10/23/24 09:24 SP TYPE: PLACENTA OTHR DR: Dr. Erick Olvera MD Tissues: A - Placenta, NOS B - Fallopian tube Procedures: Surgery Specimen Level II Surgery Specimen Level V HEADER OPERATION: Primary section, tubal ligation PRE-OP DIAGNOSIS: SGA, sterilization TISSUE SUBMITTED: A- Placenta, B- Bilateral fallopian tubes MICROSCOPIC DIAGNOSIS A. Placenta, section: * Dunne placenta at 37 weeks gestational age; 272.8 grams (less than 10th percentile). * Three vessel umbilical cord without inflammation. * Focal subchorionic fibrin deposition with acute inflammation consistent with early acute chorionitis. * Increased intervillous fibrin and syncytial knots with accelerated villous maturation, suggestive of maternal vascular malperfusion. B. Bilateral fallopian tubes, sterilization, bilateral salpingectomy: * No specific pathologic change, right tube. * No specific pathologic change, left tube. MICROSCOPIC DESCRIPTION Slides are reviewed. GROSS DESCRIPTION A. Received in formalin in a container labeled with the patient's name, date of , and with no further designation is a 17.5 x 14.5 x 1.9 cm dunne discoid placenta with a trimmed weight of 272.8 g. The eccentrically located white-zhao umbilical cord exhibits 3 vessels and is 31.5 cm in length by 1.0 cm in diameter. There is approximately 1-2 coils per 10 cm length of umbilical cord. The membranes are pink-deras with a 100% marginal attachment. Easily removed from the outer surface of the membranes is a 3.0 x 2.1 x 0.7 cm fragment of zhao-yellow, hemorrhagic fatty tissue. Sectioning reveals unremarkable cut surfaces. The surface is purple-deras with thin, prominent vasculature and 2 foci of possible subchorionic fibrin 0.7 to 1.0 cm in greatest dimension (comprising less than 2% of the surface). The maternal surface displays red-deras cotyledons that appear complete with a moderate amount of easily removed blood clot material. Serial sections reveal red, spongy, and congested cut surfaces. Backfiller sections:A1. Umbilical cordA2. Membrane roll with easily removed fatty tissueA3. Full-thickness section with possible subchorionic fibrinA4. Full-thickness section B. Received in formalin in a container labeled with the patient's name, date of , and suture in R tubes are 2 fimbriated fallopian tube segments, the right received with a stitch. The right is 5.0 cm in length by 0.5 cm in diameter, and the left is 4.5 cm in length by 0.8 cm in diameter. Each displays purple-deras, smooth serosa with unremarkable fimbriated ends. Serial sections of each reveal a pinpoint lumen. Backfiller sections:B1. Right tubeB2. Left tube [facility] 10-23-2024 CPT:[id number]
--- NOTE | 2024-10-22 16:41 | OP.PCM_ITS ---
Assessment & Plan (1) Consultation for sterilization: (2) Obesity, Class II, BMI 35-39.9: (3) Maternal obesity syndrome in third trimester: (4) Non-reassuring electronic monitoring tracing: (5) 37 weeks gestation of : (6) Chronic hypertension affecting : (7) Supervision of high risk elderly multigravida in third trimester: (8) Advanced maternal age (AMA) in : Maternal Data Information Final [facility]: 11/07/24 Gestational age: 38 5/7 Operative Report (OB) Details Procedure Type: low transverse (with bilateral salpingectomy) Date of Procedure: 10/22/24 Procedure Start Time: 16:10 Procedure Stop Time: 16:45 Time of Delivery: 16:12 Pre-Operative Diagnosis: Desires elective sterilization and Other Other Pre- Operative diagnosis: nonreassuring fhts, category 2 remote from delivery Post-Operative Diagnosis: Same as Pre-operative diagnosis Classification: RAE Type of Anesthesia: Spinal Special Medications: duramorph Antibiotic Given: Ancef 2 grams IV x1 and Other (flagyl 500 mg) Drain: Patel to straight drain Estimated Blood Loss: 800 Fluids Replaced: 1000 Findings Description of surgery: The patient was taken to the operating room. She was prepped and draped in the dorsal supine position with a leftward tilt. A Pfannenstiel skin incision was made approximately 2 cm above the symphysis pubis and carried through to underlying layer fascia with the scalpel. The fascia was incised incised in the midline and extended laterally with the Bermudez scissors. The fascia was dissected off the rectus muscles with blunt and sharp dissection. The rectus muscles were in the midline and the peritoneum was entered bluntly. The peritoneal incision was stretched and the bladder blade was placed. The uterine incision was made in a low transverse fashion with the scalpel and extended superiorly and inferiorly with blunt dissection. The amniotic membranes were ruptured bluntly and clear amniotic fluid returned. The infant's head was brought to the incision in the flexed position and delivered without difficulty. The remainder of the infant was delivered with gentle traction and fundal pressure in the standard fashion. The mouth and nares were bulb suctioned. The cord was clamped and cut as the infant was stimulated. Cord clamping was delayed. The infant was handed off to the waiting nursing staff. The placenta was delivered with fundal massage and gentle traction in the standard fashion. The uterus was exteriorized and cleared of all clots and debris. The cervix was dilated with a ring forcep. The uterine incision was closed with #1 Vicryl in a running locked fashion. [A second layer of the same suture was used in an imbricating fashion along with several [id number] 0 Vicryl sutures in bleeding sinuses to obtain hemostasis. The incision was examined and was found to be hemostatic. The uterus was placed back into the peritoneal cavity and hemostasis was again confirmed. The left fallopian tube was identified and followed out to the fimbriated end and the LigaSure device was used to clamp seal and transect the tube away from the broad ligament. The tube was then clamped sealed and transected from the cornual insertion with the LigaSure device and excellent hemostasis was noted. The same procedure was performed on the contralateral side. Hemablast was placed over the incision. The rectus muscles were examined and any bleeding was Bovie cauterized. The parietal peritoneum and rectus muscles were closed en bloc with an 0 Vicryl running suture. The rectus fascia was examined and any bleeding was Bovie cauterized and the rectus fascia was closed with looped #1 PDS suture in a running standard fashion. The subcutaneous tissue was examining and any bleeding was Bovie cauterized. Hemablast was placed over the rectus muscles and in the subcutaneous tissue. The subcutaneous tissue was reapproximated with 3-0 Vicryl suture. The skin was closed in a subcuticular fashion by the CONSUMER MARKETING ANALYST with me present in the labor and delivery suite. I performed the remainder of the procedure with assistance. All sponge, lap, and needle counts were correct. The patient was taken to her room for recovery in a stable condition. Surgical findings: enlarged uterus with multiple fibroids, normal ovaries and tubes Presentation: Vertex Amniotic Fluid Description: Clear Placental Delivery Description: Expressed Placenta Disposition: Sent to Pathology Specimen collected: Yes Description of specimen(s) removed: bilateral fallopian tubes Cord Vessel Description: 3 Vessels Cord Entanglement: Around neck x 1, loose Nuchal Cord Compression: Without compression Cord Gases: ABG and VBG A gender: Female (Pippa) (1 minute): 9 (5 minute): 9 Delayed Cord Clamping: Yes Mail Order Clerk computer typesetter: Yes Motion Graphics Artist: Samantha Sánchez Tasks completed by assistant purchasing manager: Closing and Retracting Additional licensed investment sales assistant?: No Complications Complications: No Admit VTE Documentation VTE Present on Admission: No VTE Mechan Device Prophylaxis: SCD's VTE Pharm Prophylaxis Ordered: Yes
--- NOTE | 2024-10-22 16:48 | PCM.POST.ANE ---
Anesthesia: Postop Eval I Current Vital Signs Temperature: 97 F Pulse Rate: 70 Blood Pressure: 155/98 Respiratory Rate: 16 Pulse Ox: 100 Oxygen Delivery Method: Room Air Assessment Airway patent: Yes Spontaneous unlabored respirations: Yes Mental status: Awake and Calm nausea: No Vomiting: No Anesthesia Complication: No Fluid Hydration Crystalloid volume administer (ml): 1,000 Total IV fluid infused: 1,000 Progress Note Anesthesia document: Postop Eval 1 completed: Yes
--- NOTE | 2024-10-22 16:53 | POSTOPAN2_ITS ---
Anesthesia Postop Eval I Sum Postop Eval Completion status Anesthesia document: Postop Eval 1 completed: Yes Anesthesia Postop Eval I Summary Anesthesia Postop Eval I Summary: Anesthesia Postop Eval I: Assessment Summary Airway patent Yes 10/22/24 16:49 ALUMINUM BOATS [email or web address] Spontaneous unlabored Yes 10/22/24 16:49 ALUMINUM BOATS [email or web address] respirations Mental status Awake,Calm 10/22/24 16:49 ALUMINUM BOATS [email or web address] nausea No 10/22/24 16:49 ALUMINUM BOATS [email or web address] Vomiting No 10/22/24 16:49 ALUMINUM BOATS [email or web address] Anesthesia Postop Eval I: Fluid Summary Crystalloid volume administer 1,000 10/22/24 16:49 ALUMINUM BOATS [email or web address] (ml) Colloids volume administered ( ml) Blood Product volume administered (ml) Total IV fluid infused 1,000 10/22/24 16:49 ALUMINUM BOATS [email or web address] Anesthesia Postop Eval I: Summary Notes Anesthesia Complication No 10/22/24 16:49 ALUMINUM BOATS [email or web address] Anesthesia Complication Comment: Post-operative progress note Anesthesia: Postop Eval II Evaluation Mental status: Awake and Calm Pain Level: 0 nausea: No Vomiting: No Complications Anesthesia Complication: No
--- NOTE | 2024-10-22 16:53 | PCM.POSTANE2 ---
Anesthesia Postop Eval I Sum Postop Eval Completion status Anesthesia document: Postop Eval 1 completed: Yes Anesthesia Postop Eval I Summary Anesthesia Postop Eval I Summary: Anesthesia Postop Eval I: Assessment Summary Airway patent Yes 10/22/24 16:49 MANAGER [email or web address] Spontaneous unlabored Yes 10/22/24 16:49 MANAGER [email or web address] respirations Mental status Awake,Calm 10/22/24 16:49 MANAGER [email or web address] nausea No 10/22/24 16:49 MANAGER [email or web address].MDOT Vomiting No 10/22/24 16:49 MANAGER [email or web address].MDOT Anesthesia Postop Eval I: Fluid Summary Crystalloid volume administer 1,000 10/22/24 16:49 MANAGER [email or web address].MDOT (ml) Colloids volume administered ( ml) Blood Product volume administered (ml) Total IV fluid infused 1,000 10/22/24 16:49 MANAGER [email or web address].MDOT Anesthesia Postop Eval I: Summary Notes Anesthesia Complication No 10/22/24 16:49 MANAGER [email or web address].MDOT Anesthesia Complication Comment: Post-operative progress note Anesthesia: Postop Eval II Evaluation Mental status: Awake and Calm Pain Level: 0 nausea: No Vomiting: No Complications Anesthesia Complication: No
[2024-10-22] MEDS: Oxytocin 15 Units/NS 250ml 15 UNITS/250 ML IV.SOLN 83 UNITS IV (17:00)
[2024-10-22] MEDS: Ketorolac 30 MG/ML Syringe IV ×2 (17:46→21:10)
[2024-10-22] MEDS: miSOPROStol 200 MCG Tablet 1000 MCG RC (18:08)
--- NOTE | 2024-10-22 18:29 | PCM.PN.BLA ---
Progress Note Called to see pt. 2 episodes of clots. Now firm and average bleeding. Firm fundal given and no clots palpable or in vagina. Average bleeding now. Given 1000 mcg of cytotec vaginally. If increased bleeding will give hemabate due to HTN will try to avoid methergine. Monitor bleeding. Check CBC if further bleeding. Nursing did stephanie. EBL since recovery, 500 cc.
[2024-10-22] MEDS: Carboprost Tromethamine 250 MCG/ML Ampul IM (18:51)
[2024-10-22 19:20] LABS: Absolute Neutrophil Count 7.7 X10^3/uL (2.0-7.7); Basophil# 0.03 X10^3/uL; Basophil% 0.3 % (0-1); Eosinophils% 1.9 % (0-5); Hemoglobin 9.8 g/dL (12.0-15.0); Lymphocyte % 17.4 % (19-41); Mean Corp Hgb Conc 32.7 g/dL (32-36); Mean Corpuscular Hgb 28.4 pg (27.0-32.0); Mean Platelet Vol. 9.1 fl (6.2-12.0); Monocyte# 0.59 X10^3/uL; Monocyte% 5.7 % (0-10); NRBC Flagged by Analyzer 0 % (0-5); Neutrophil # 7.65 X10^3/uL (2.7-7.7); Platelet Count 220 K/mm3 (150-450); RBC Distribution Width CV 14.1 % (11.6-14.6); RBC Distribution Width SD 44.8 fl (35.1-43.9); Red Blood Count 3.45 M/mm3 (4.2-5.4); White Blood Count 10.3 K/mm3 (4.4-11.0)
[2024-10-22] MEDS: Loperamide 2 MG Capsule PO (19:29)
[2024-10-22] MEDS: miSOPROStol 200 MCG Tablet 800 MCG RC (20:21)
[2024-10-22] MEDS: Lactated Ringers 1,000 ML 100 ML IV (20:53)
[2024-10-22] MEDS: Acetaminophen 500 MG Tablet 1000 MG PO (22:56)
[2024-10-23 00:28] LABS: Pathology Specimen OB SEE PATHOLOGY REPORT
[2024-10-23 00:40] LABS: Pathology Specimen OB SEE PATHOLOGY REPORT
[2024-10-23 00:55] VITALS: RESP 16; O2SAT 100
[2024-10-23] MEDS: Labetalol 200 MG Tablet 300 MG PO ×2 (03:20→15:33)
[2024-10-23] MEDS: Ketorolac 30 MG/ML Syringe IV ×2 (03:22→09:41)
[2024-10-23] MEDS: 0.9% Saline Lock 10 ML Syringe IV (03:27)
[2024-10-23 03:30] VITALS: BP 118/77; PULSE 103; RESP 18; TEMP 36.5; O2SAT 100
[2024-10-23] MEDS: Enoxaparin 40 MG/0.4 ML Syringe SC (04:27)
[2024-10-23] MEDS: Acetaminophen 500 MG Tablet 1000 MG PO ×3 (05:15→17:05)
[2024-10-23 05:30] LABS: Hemoglobin 8.4 g/dL (12.0-15.0); Mean Corp Hgb Conc 33.6 g/dL (32-36); Mean Corpuscular Hgb 28.9 pg (27.0-32.0); Mean Corpuscular Volume 85.9 fL (81-99); Mean Platelet Vol. 9.6 fl (6.2-12.0); Platelet Count 180 K/mm3 (150-450); RBC Distribution Width CV 13.9 % (11.6-14.6); RBC Distribution Width SD 43.9 fl (35.1-43.9); Red Blood Count 2.91 M/mm3 (4.2-5.4)
[2024-10-23 08:14] VITALS: BP 115/75; PULSE 94; RESP 14; TEMP 36.5; O2SAT 97
--- NOTE | 2024-10-23 11:03 | PCM.PN.BLA ---
Progress Note pain well controlled, average lochia, no N/V. Yoseph. regular diet. Physical Exam Const alert General Appearance: cooperative GI GI Narrative: soft, moderate distention, fundus firm, appropriately tender. Abdominal bandage clean dry and intact Assessment & Plan Assessment/Plan (1) delivery delivered: (2) Consultation for sterilization: (3) Antepartum anemia: PLAN: Plan Postoperative day #1 status post primary section with bilateral salpingectomy. Patient and are doing well. Patient has chronic antepartum anemia. Drop in hemoglobin postoperatively is consistent with blood loss during surgery and after. Had some atony. Will recheck hemoglobin at 4 PM. If it it is stable and patient is doing well she can DC home on oral iron. Okay to DC home if okay with peds. Patient having some loose stools after the Hemabate. Discussed with her symptomatic measures. Continue meds for chronic hypertension.
[2024-10-23 11:24] VITALS: BP 123/81; PULSE 98; RESP 16; TEMP 36.2; O2SAT 99
[2024-10-23] MEDS: Ibuprofen 600 MG Tablet PO (15:33)
[2024-10-23 15:36] VITALS: BP 115/71; PULSE 99; RESP 16; TEMP 36.6; O2SAT 98
[2024-10-23 16:32] LABS: Hematocrit 24.1 % (37-47); Hemoglobin 7.9 g/dL (12.0-15.0); Mean Corp Hgb Conc 32.8 g/dL (32-36); Mean Corpuscular Hgb 28.2 pg (27.0-32.0); Mean Corpuscular Volume 86.1 fL (81-99); Mean Platelet Vol. 9.5 fl (6.2-12.0); Platelet Count 199 K/mm3 (150-450); RBC Distribution Width SD 43.9 fl (35.1-43.9); White Blood Count 11.3 K/mm3 (4.4-11.0)
[2024-10-23] MEDS: Iron Sucrose Complex 200 MG in 0.9% Normal Saline (100mL Bag) 100 ML 220 MG IV (17:04)
[2024-10-23 18:58] VITALS: RESP 16
--- NOTE | 2024-10-27 16:20 | NURSING ---
Spoke with the patient for the f/u phone call. Pt states she is feeling good and her incision is clean and dry. Pt denies any headaches or visual disturbances. Pt states her bleeding is lightening up some. Pt states the is nursing well and declines a f/u at this time. Pt denies any questions.
== END 2024-10-23 19:43 | disposition home or self-care (01) | DRG 784 ==
LOC: WPOUT 14:21 → WP 14:21
PROVIDERS: Admitting Provider Obstetrics & Gynecology; PCP Family Medicine; Referring Provider Obstetrics & Gynecology; Visit Provider Obstetrics & Gynecology
DX: O10.92 Unspecified pre-existing hypertension complicating childbirth (principal); D62 Acute posthemorrhagic anemia; O72.1 Other immediate postpartum hemorrhage; D50.9 Iron deficiency anemia, unspecified; O99.214 Obesity complicating childbirth; R19.5 Other fecal abnormalities; D25.9 Leiomyoma of uterus, unspecified; O34.13 Maternal care for benign tumor of corpus uteri, third trimester; E66.812 Obesity, class 2; O99.02 Anemia complicating childbirth; O99.892 Other specified diseases and conditions complicating childbirth; N85.2 Hypertrophy of uterus; O76 Abnormality in fetal heart rate and rhythm complicating labor and delivery; O69.81X0 Labor and delivery complicated by cord around neck, without compression, not applicable or unspecified; O9A.23 Injury, poisoning and certain other consequences of external causes complicating the puerperium; T48.0X5A Adverse effect of oxytocic drugs, initial encounter; Z30.2 Encounter for sterilization; Z79.82 Long term (current) use of aspirin; Z79.899 Other long term (current) drug therapy; Z87.891 Personal history of nicotine dependence; Z37.0 Single live birth; Z3A.38 38 weeks gestation of pregnancy
CPT/HCPCS: 59025; 59050; 82565; 82570; 84156; 84450; 84460; 84550; 85025; 85027; 86780; 86850; 86900; 86901; 88302; 88307; 99221; J1756; A4216; G0378; J2405